=== PATIENT | male | born 1990 | race American Indian/Alaskan Native ===

== ENCOUNTER 2018-08-08 16:25 | Emergency (ER) | payer OTHER, MEDICAID ==
[2018-08-08] MEDS ORDERED: Sodium Chloride 0.9% 10 ML Syringe FLUSH PRN (16:38)
[2018-08-08] MEDS ORDERED: Iopamidol 612 MG/ML 100 ML Bottle IVPUSH ONE (16:39)
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
[2018-08-08 17:08] LABS: ANION GAP 12.7; CHLORIDE,CL 97 mmol/L (101-111); SODIUM,NA 136 mmol/L (135-145)
[2018-08-08] MEDS ORDERED: LORazepam 2 MG/ML Syringe IVPUSH ONE (17:09)
[2018-08-08] MEDS ORDERED: LORazepam 1 MG Tab PO ONE (17:49)
--- NOTE | 2018-08-11 14:19 | EKG ---
08/08/2018 - LAW SETHI - TIME: 1455 hours. FINDINGS: Sinus tachycardia at 120. [facility] /[id number]
--- NOTE | 2018-08-11 14:28 | EKG ---
08/08/2018 - LAW SETHI - TIME: 4:55 p.m. FINDINGS: Sinus tachycardia at 120. [facility] /[id number]
--- NOTE | 2018-08-11 23:18 | EKG ---
08/08/2018 - LAW SETHI - TIME: 4:55 p.m. As per my reading, sinus tachycardia at 120. MOD /[id number]
--- NOTE | 2018-08-12 00:03 | EKG ---
08/08/2018 - LAW SETHI - TIME: 4:55 p.m. As per my reading, sinus tachycardia at 120. MOD /[id number]
== END 2018-08-08 18:20 ==
LOC: DL.ED 16:25
DX: S02.2XXA Fracture of nasal bones, initial encounter for closed fracture (principal); S40.212A Abrasion of left shoulder, initial encounter; V43.53XA Car driver injured in collision with pick-up truck in traffic accident, initial encounter
CPT/HCPCS: 36415; 70450; 71260; 72125; 72128; 72131; 73610; 74177; 80053; 80305; 81001; 85025; 85610; 93005; 99285; A9270; G0480; Q9967

== ENCOUNTER 2021-02-21 17:07 | Observation (INO) | payer MEDICAID ==
[2021-02-21 17:45] LABS: CHLORIDE,CL 105 mmol/L (98-107); SODIUM,NA 147 mmol/L (136-145)
[2021-02-21] MEDS ORDERED: LORazepam 2 MG/ML SDV IVPUSH ONE (17:49)
[2021-02-21] MEDS ORDERED: Lactated Ringers 1,000 ML IV ONE (17:51)
--- NOTE | 2021-02-21 18:25 | CT ---
PROCEDURE INFORMATION: Exam: CT Head Without Contrast Exam date and time: 02/21/2021 6:10 PM Age: 30 years old Clinical indication: Condition or disease; Convulsions or seizures; Additional info: Seizure TECHNIQUE: Imaging protocol: Computed tomography of the head without contrast. Radiation optimization: All CT scans at this facility use at least one of these dose optimization techniques: automated exposure control; mA and/or kV adjustment per patient size (includes targeted exams where dose is matched to clinical indication); or iterative reconstruction. COMPARISON: CT Head wo Cont 08/08/2018 4:44 PM FINDINGS: Brain: Normal. No hemorrhage. Unremarkable white matter. No mass effect. Cerebral ventricles: No ventriculomegaly. Bones/joints: Unremarkable. No acute fracture. Paranasal sinuses: Visualized sinuses are unremarkable. No fluid levels. Mastoid air cells: Visualized mastoid air cells are well aerated. Soft tissues: Unremarkable. IMPRESSION: No acute intracranial abnormality.
--- NOTE | 2021-02-21 18:39 | EDM.PDOC ---
ED HPI GENERAL MEDICAL PROBLEM - General Chief Complaint: Neurological Problem Time Seen by Provider: 02/21/21 17:32 Source of Information: Reports: Patient, EMS, EMS Notes Reviewed, RN, RN Notes Reviewed History Limitations: Reports: No Limitations - History of Present Illness INITIAL COMMENTS - FREE TEXT/NARRATIVE: Patient is a 30-year-old male who presents to ER per [place] with complaint of seizure. Patient states he had a seizure approximately 1 hour ago. States he has had seizures in the past. States he has not been taking meds for seizures, but has taken gabapentin in the past for seizure activity. States he is not taking these meds for quite some time. Patient admits to alcohol use, last used last evening. Patient states he has tried meth once last week. Patient complains of a twitch today after the seizures. Onset: Today, Sudden - Related Data Allergies Allergy/AdvReac Type Severity Reaction Status Date / Time No Known Allergies Allergy Verified 02/21/21 17:44 Home Meds: Home Meds Gabapentin [Neurontin] 300 mg PO TID 10 Days #30 cap 02/22/21 [Rx] Past Medical History Neurological History: Reports: Seizure Social & Family History - Tobacco Use Tobacco Use Status *Q: Never Tobacco User - Recreational Drug Use Recreational Drug Use: No ED ROS GENERAL - Review of Systems Review Of Systems: Comprehensive ROS is negative, except as noted in HPI. - Physical Exam Exam: See Below Exam Limited By: No Limitations General Appearance: Alert, WD/WN, Anxious, Other (Patient has facial twitching/tach that he states is abnormal, patient is anxious) Eye Exam: Bilateral Eye: EOMI, Normal Inspection, PERRL (3 brisk) Ears: Normal External Exam, Hearing Grossly Normal Nose: Normal Inspection Throat/Mouth: Normal Inspection, Normal Voice, No Airway Compromise Head Exam: Atraumatic, Normocephalic Neck: Normal Inspection, Supple, Non-Tender, Full Range of Motion Respiratory/Chest: No Respiratory Distress, Lungs Clear, Normal Breath Sounds, No Accessory Muscle Use, Chest Non-Tender Cardiovascular: Normal Peripheral Pulses, Regular Rate, Rhythm, No Edema, No Gallop, No JVD, No Murmur, No Rub GI/Abdominal: Normal Bowel Sounds, Soft, Non-Tender, No Organomegaly, No Distention, No Abnormal Bruit, No Mass (Male) Exam: Deferred Rectal (Males) Exam: Deferred Neuro Exam (Abbreviated): Alert, Oriented, CN II-XII Intact, Normal Cognition, Normal Gait, Normal Reflexes, No Motor/Sensory Deficits Back Exam: Normal Inspection, Full Range of Motion Extremities: Normal Inspection, Normal Range of Motion, Non-Tender, No Pedal Edema, Normal Capillary Refill Psychiatric: Normal Affect, Normal Mood, Anxious Skin Exam: Warm, Dry, Intact, Normal Color, No Rash Course - Vital Signs Last Recorded V/S: Last Vital Signs Temp 98.6 F 02/22/21 08:06 Pulse 87 02/22/21 08:06 Resp 20 02/22/21 08:06 BP 111/70 02/22/21 08:06 Pulse Ox 97 02/22/21 08:06 - Orders/Labs/Meds Orders: Medication Orders Acetaminophen (Acetaminophen 325 Mg Tab) 650 mg PO Q4H PRN PRN Reason: Pain (Mild 1-3)/fever Last Admin: 02/21/21 22:37 Dose: 650 mg Documented by: WILBER Docusate Sodium (Docusate Sodium 100 Mg Cap) 100 mg PO BID PRN PRN Reason: Constipation Enoxaparin Sodium (Enoxaparin 40 Mg/0.4 Ml Syringe) 40 mg SUBCUT DAILY JENNY Last Admin: 02/22/21 10:28 Dose: 40 mg Documented by: RICHY Lorazepam (Lorazepam 2 Mg/Ml Sdv) 1 mg IVPUSH Q6H PRN PRN Reason: Seizures Sodium Chloride (Sodium Chloride 0.9% 10 Ml Syringe) 10 ml FLUSH ASDIRECTED PRN PRN Reason: Keep Vein Open Labs: Laboratory Tests 02/21/21 02/21/21 Range/Units 17:21 17:21 WBC 5.2 (5.0-10.0) 10^3/uL RBC 4.60 (4.6-6.2) 10^6/uL Hgb 14.1 (14.0-18.0) g/dL Hct 42.1 (40.0-54.0) % MCV 91.5 (80-100) fL MCH 30.7 (27.0-34.0) pg MCHC 33.5 (33.0-35.0) g/dL Plt Count 192 (150-450) 10^3/uL Neut % (Auto) 54.2 (42.2-75.2) % Lymph % (Auto) 36.3 (20.5-50.1) % [place] % (Auto) 8.9 H (2-8) % Eos % (Auto) 0.4 L (1.0-3.0) % Baso % (Auto) 0.2 (0.0-1.0) % Sodium 147 H (136-145) mmol/L Potassium 4.0 (3.5-5.1) mmol/L Chloride 105 (98-107) mmol/L Carbon Dioxide 30 (21-32) mmol/L Anion Gap 16.0 H (7-13) mEq/L BUN 19 H (7-18) mg/dL Creatinine 1.05 (0.70-1.30) mg/dL Est Cr Clr Drug Dosing 101.00 mL/min Estimated GFR (MDRD) > 60 BUN/Creatinine Ratio 18.1 (No establ ref range) Glucose 99 (74-99) mg/dL Calcium 8.6 (8.5-10.1) mg/dL Magnesium 1.8 (1.8-2.4) mg/dL Total Bilirubin 0.3 (0.2-1.0) mg/dL AST 53 H (15-37) U/L ALT 41 (16-63) U/L Alkaline Phosphatase 102 (46-116) U/L Total Protein 7.2 (6.4-8.2) g/dL Albumin 3.7 (3.4-5.0) g/dL Globulin 3.5 Albumin/Globulin Ratio 1.1 Ethyl Alcohol 46 (0) mg/dL Meds: Medications Generic Name Dose Route Start Last Admin Trade Name Freq PRN Reason Stop Dose Admin Acetaminophen 650 mg 02/21/21 20:56 02/21/21 22:37 Acetaminophen 325 Mg Tab PO 650 mg Q4H PRN Administration Pain (Mild 1-3)/fever Docusate Sodium 100 mg 02/21/21 20:56 Docusate Sodium 100 Mg Cap PO BID PRN Constipation Enoxaparin Sodium 40 mg 02/22/21 09:00 02/22/21 10:28 Enoxaparin 40 Mg/0.4 Ml Syringe SUBCUT 40 mg DAILY JENNY Administration Lorazepam 1 mg 02/21/21 20:56 Lorazepam 2 Mg/Ml Sdv IVPUSH Q6H PRN Seizures Sodium Chloride 10 ml 02/21/21 20:56 Sodium Chloride 0.9% 10 Ml Syringe FLUSH ASDIRECTED PRN Keep Vein Open Discontinued Medications Generic Name Dose Route Start Last Admin Trade Name Abdon PRN Reason Stop Dose Admin Gabapentin 800 mg 02/21/21 19:08 02/21/21 20:57 Gabapentin 400 Mg Cap PO 02/21/21 19:09 Not Given ONETIME ONE Gabapentin 800 mg 02/21/21 21:00 02/21/21 21:00 Gabapentin 400 Mg Cap PO 02/21/21 21:01 800 mg ONETIME ONE Administration Gabapentin 800 mg 02/21/21 21:00 02/21/21 21:07 Gabapentin 400 Mg Cap PO 02/21/21 21:01 Not Given TID ONE Lactated Ringer's 1,000 mls @ 999 mls/hr 02/21/21 17:51 02/21/21 20:24 Ringers, Lactated IV 02/21/21 18:51 Infused .BOLUS ONE Infusion Lorazepam 0.5 mg 02/21/21 17:49 02/21/21 19:01 Lorazepam 2 Mg/Ml Sdv IVPUSH 02/21/21 17:50 0.5 mg ONETIME ONE Administration - Radiology Interpretation Free Text/Narrative:: Head CT wo contrast: PROCEDURE INFORMATION: Exam: CT Head Without Contrast Exam date and time: 02/21/2021 6:10 PM Age: 30 years old Clinical indication: Condition or disease; Convulsions or seizures; Additional info: Seizure TECHNIQUE: Imaging protocol: Computed tomography of the head without contrast. Radiation optimization: All CT scans at this facility use at least one of these dose optimization techniques: automated exposure control; mA and/or kV adjustment per patient size (includes targeted exams where dose is matched to clinical indication); or iterative reconstruction. COMPARISON: CT Head wo Cont 08/08/2018 4:44 PM FINDINGS: Brain: Normal. No hemorrhage. Unremarkable white matter. No mass effect. Cerebral ventricles: No ventriculomegaly. Bones/joints: Unremarkable. No acute fracture. Paranasal sinuses: Visualized sinuses are unremarkable. No fluid levels. Mastoid air cells: Visualized mastoid air cells are well aerated. Soft tissues: Unremarkable. IMPRESSION: No acute intracranial abnormality. Thank you for allowing us to participate in the care of your patient. Dictated and Authenticated by: Aracely Alfredo MD 02/21/2021 6:25 PM Central Time ([place] & [place]) See rad report - Re-Assessments/Exams Free Text/Narrative Re-Assessment/Exam: 02/22/21 12:08 Discussed patient case with Dr. Taylor who agreed to admit the patient for acute inpatient. He requested gabapentin 800 mg be given to the patient. Departure - Departure Time of Disposition: 19:32 Disposition: Refer to Observation Condition: Good Clinical Impression: Seizure, Substance abuse - Discharge Information *PRESCRIPTION DRUG MONITORING PROGRAM REVIEWED*: No *COPY OF PRESCRIPTION DRUG MONITORING REPORT IN PATIENT JENIFER: No Sepsis Event Note (ED) - Evaluation Sepsis Screening Result: No Definite Risk
[2021-02-21] MEDS ORDERED: Gabapentin 400 MG Cap PO ONE ×3 (19:08→21:00)
[2021-02-21] MEDS ORDERED: Docusate Sodium 100 MG Cap PO PRN (20:56)
[2021-02-21] MEDS ORDERED: LORazepam 2 MG/ML SDV IVPUSH PRN (20:56)
[2021-02-21] MEDS ORDERED: Acetaminophen 325 MG Tab PO PRN (20:56)
[2021-02-21] MEDS ORDERED: Sodium Chloride 0.9% 10 ML Syringe FLUSH PRN (20:56)
--- NOTE | 2021-02-21 21:13 | PCM.HP ---
H&P History of Present Illness - General Date of Service: 02/21/21 Admit Problem/Dx: Admission Diagnosis/Problem Admission Diagnosis/Problem Seizure Source of Information: Patient, Other (ER provider) - History of Present Illness Onset of Symptoms: Reports: Sudden Duration of Symptoms: Reports: Day(s): (yest) Location: Reports: Generalized Associated Symptoms: Denies: No Other Symptoms Other HPI/Comments: pt is 30 y/o man presented to ER because of seizure. Pt reported that he has h/o seizures for long time and his seizures are sporadic. Last episode was long time. Pt reports that he is supposed to be on Gabapentin 800 mg TID but has not been taking in ER. pt was found with repeated twitching movement while in ER. CT brain was neg. Pt was felt to be post ictal but he kept to have twitchimg movemet all over, Pt reported that he had alcohol las week but his alcohol level was 46 in ER. Pt repeatedly denies taking any drugs. - Related Data Allergies/Adverse Reactions: Allergies Allergy/AdvReac Type Severity Reaction Status Date / Time No Known Allergies Allergy Verified 02/21/21 17:44 Home Medications: Home Meds . [No Known Home Meds] 02/21/21 [History] Past Medical History Neurological History: Reports: Seizure Hematologic History: Reports: None - History Comment History Comment: as per H/P Social & Family History - Family History Family Medical History: Unobtainable - Tobacco Use Tobacco Use Status *Q: Never Tobacco User - Alcohol Use Alcohol Use History: Yes - Recreational Drug Use Recreational Drug Use: No H&P Review of Systems - Review of Systems: Review Of Systems: See Below General: Denies: Fever, Chills HEENT: Denies: Headaches Pulmonary: Denies: Shortness of Breath Cardiovascular: Denies: Chest Pain Gastrointestinal: Denies: Abdominal Pain Genitourinary: Denies: Dysuria Musculoskeletal: Denies: Neck Pain Skin: Denies: Jaundice Psychiatric: Reports: Anxiety Neurological: Reports: Change in Speech. Denies: Headache, Other Hematologic/Lymphatic: Denies: Anemia Exam - Exam Exam: See Below - Vital Signs Vital Signs: Last Vital Signs Temp 97.8 F 02/21/21 20:13 Pulse 116 H 02/21/21 20:13 Resp 22 H 02/21/21 20:13 BP 146/79 H 02/21/21 20:13 Pulse Ox 90 L 02/21/21 20:13 Weight: 181 lb 6.4 oz - Exam Quality Assessment: No: Supplemental Oxygen General: Alert, Oriented HEENT: EOMI Lungs: Clear to Auscultation Cardiovascular: Regular Rate, Regular Rhythm GI/Abdominal Exam: Soft, Non-Tender Rectal (Males) Exam: Deferred Extremities: Normal Inspection Skin: Intact Neurological: Cranial Nerves Intact, Clonus. No: Normal Speech Neuro Extensive - Mental Status: Alert, Oriented x3, Other (movment all over in cluding face and mount. pt is pleaseat and answeing question. Pt could not specify if these movoments are chronic or new) Neuro Extensive - Motor, Sensory, Reflexes: Tremor, Other (gait not tested) Psychiatric: Alert, Anxious - Patient Data Lab Results Last 24 hrs: Laboratory Results - last 24 hr 02/21/21 02/21/21 02/21/21 Range/Units 17:21 17:21 19:14 WBC 5.2 (5.0-10.0) 10^3/uL RBC 4.60 (4.6-6.2) 10^6/uL Hgb 14.1 (14.0-18.0) g/dL Hct 42.1 (40.0-54.0) % MCV 91.5 (80-100) fL MCH 30.7 (27.0-34.0) pg MCHC 33.5 (33.0-35.0) g/dL Plt Count 192 (150-450) 10^3/uL Neut % (Auto) 54.2 (42.2-75.2) % Lymph % (Auto) 36.3 (20.5-50.1) % [place] % (Auto) 8.9 H (2-8) % Eos % (Auto) 0.4 L (1.0-3.0) % Baso % (Auto) 0.2 (0.0-1.0) % Sodium 147 H (136-145) mmol/L Potassium 4.0 (3.5-5.1) mmol/L Chloride 105 (98-107) mmol/L Carbon Dioxide 30 (21-32) mmol/L Anion Gap 16.0 H (7-13) mEq/L BUN 19 H (7-18) mg/dL Creatinine 1.05 (0.70-1.30) mg/dL Est Cr Clr Drug Dosing 101.00 mL/min Estimated GFR (MDRD) > 60 BUN/Creatinine Ratio 18.1 (No establ ref range) Glucose 99 (74-99) mg/dL Calcium 8.6 (8.5-10.1) mg/dL Magnesium 1.8 (1.8-2.4) mg/dL Total Bilirubin 0.3 (0.2-1.0) mg/dL AST 53 H (15-37) U/L ALT 41 (16-63) U/L Alkaline Phosphatase 102 (46-116) U/L Total Protein 7.2 (6.4-8.2) g/dL Albumin 3.7 (3.4-5.0) g/dL Globulin 3.5 Albumin/Globulin Ratio 1.1 Urine Color (YELLOW) Urine Appearance (CLEAR) Urine pH (5.0-9.0) Ur Specific [place] (1.005-1.030) Urine Protein (NEGATIVE) Urine Glucose (UA) (NEGATIVE) Urine Ketones (NEGATIVE) Urine Occult Blood (NEGATIVE) Urine Nitrite (NEGATIVE) Urine Bilirubin (NEGATIVE) Urine Urobilinogen (0.2-1.0) mg/dL Ur Leukocyte Esterase (NEGATIVE) Urine RBC /HPF Urine WBC (0-5/HPF) /HPF Ur Epithelial Cells (NOT SEEN) /HPF Amorphous Sediment (NOT SEEN) /HPF Urine Bacteria (0-FEW/HPF) /HPF Urine Mucus (NOT SEEN) /LPF Urine Opiates Screen (NEGATIVE) Ur Oxycodone Screen (NEGATIVE) Urine Methadone Screen (NEGATIVE) Ur Barbiturates Screen (NEGATIVE) U Tricyclic Antidepress (NEGATIVE) Ur Phencyclidine Scrn (NEGATIVE) Ur Amphetamine Screen (NEGATIVE) U Methamphetamines Scrn (NEGATIVE) Urine MDMA Screen (NEGATIVE) U Benzodiazepines Scrn (NEGATIVE) Urine Cocaine Screen (NEGATIVE) U Marijuana (THC) Screen (NEGATIVE) Ethyl Alcohol 46 (0) mg/dL SARS-CoV-2 RNA (VANDANA) Negative (NEGATIVE) 02/21/21 02/21/21 Range/Units 20:33 20:33 WBC (5.0-10.0) 10^3/uL RBC (4.6-6.2) 10^6/uL Hgb (14.0-18.0) g/dL Hct (40.0-54.0) % MCV (80-100) fL MCH (27.0-34.0) pg MCHC (33.0-35.0) g/dL Plt Count (150-450) 10^3/uL Neut % (Auto) (42.2-75.2) % Lymph % (Auto) (20.5-50.1) % [place] % (Auto) (2-8) % Eos % (Auto) (1.0-3.0) % Baso % (Auto) (0.0-1.0) % Sodium (136-145) mmol/L Potassium (3.5-5.1) mmol/L Chloride (98-107) mmol/L Carbon Dioxide (21-32) mmol/L Anion Gap (7-13) mEq/L BUN (7-18) mg/dL Creatinine (0.70-1.30) mg/dL Est Cr Clr Drug Dosing mL/min Estimated GFR (MDRD) BUN/Creatinine Ratio (No establ ref range) Glucose (74-99) mg/dL Calcium (8.5-10.1) mg/dL Magnesium (1.8-2.4) mg/dL Total Bilirubin (0.2-1.0) mg/dL AST (15-37) U/L ALT (16-63) U/L Alkaline Phosphatase (46-116) U/L Total Protein (6.4-8.2) g/dL Albumin (3.4-5.0) g/dL Globulin Albumin/Globulin Ratio Urine Color Yellow (YELLOW) Urine Appearance Slightly cloudy (CLEAR) Urine pH 7.0 (5.0-9.0) Ur Specific [place] 1.025 (1.005-1.030) Urine Protein 30 H (NEGATIVE) Urine Glucose (UA) Negative (NEGATIVE) Urine Ketones Negative (NEGATIVE) Urine Occult Blood Trace-intact H (NEGATIVE) Urine Nitrite Negative (NEGATIVE) Urine Bilirubin Negative (NEGATIVE) Urine Urobilinogen 0.2 (0.2-1.0) mg/dL Ur Leukocyte Esterase Negative (NEGATIVE) Urine RBC 0-5 /HPF Urine WBC 0-5 (0-5/HPF) /HPF Ur Epithelial Cells Rare (NOT SEEN) /HPF Amorphous Sediment Few (NOT SEEN) /HPF Urine Bacteria Rare (0-FEW/HPF) /HPF Urine Mucus Few H (NOT SEEN) /LPF Urine Opiates Screen Negative (NEGATIVE) Ur Oxycodone Screen Negative (NEGATIVE) Urine Methadone Screen Negative (NEGATIVE) Ur Barbiturates Screen Negative (NEGATIVE) U Tricyclic Antidepress Negative (NEGATIVE) Ur Phencyclidine Scrn Negative (NEGATIVE) Ur Amphetamine Screen Negative (NEGATIVE) U Methamphetamines Scrn Positive H (NEGATIVE) Urine MDMA Screen Negative (NEGATIVE) U Benzodiazepines Scrn Negative (NEGATIVE) Urine Cocaine Screen Negative (NEGATIVE) U Marijuana (THC) Screen Negative (NEGATIVE) Ethyl Alcohol (0) mg/dL SARS-CoV-2 RNA (VANDANA) (NEGATIVE) Result Diagrams: 02/21/21 17:21 02/21/21 17:21 Dylan Results Last 24 hrs: UDS : positive for Amph COVID is neg Imaging Impressions Last 24 hrs: CT brain no actue - Problem List (1) Seizure SNOMED Code(s): 98090102 ICD Code: R56.9 - UNSPECIFIED CONVULSIONS Status: Acute Current Visit: Yes Problem List Initiated/Reviewed/Updated: Yes Orders Last 24hrs: Active Orders 24 hr Category Date Time Status Admission Diagnosis [ADT] Stat ADT 02/21/21 19:10 Ordered Patient Status [ADT] Routine ADT 02/21/21 19:10 Active Communication Order [RC] PER UNIT ROUTINE Care 02/21/21 21:02 Ordered Oxygen Therapy [RC] PRN Care 02/21/21 20:56 Ordered Up With Assistance [RC] ASDIRECTED Care 02/21/21 20:56 Ordered VTE/DVT Education [RC] PER UNIT ROUTINE Care 02/21/21 20:56 Ordered Vital Signs [RC] Q4H Care 02/21/21 20:56 Ordered Regular Diet [DIET] Diet 02/22/21 Breakfast Ordered BASIC METABOLIC PANEL,BMP [CHEM] AM Lab 02/22/21 05:11 Ordered CBC WITH AUTO DIFF [HEME] Routine Lab 02/21/21 20:56 Ordered Acetaminophen [TylenoL] Med 02/21/21 20:56 Ordered 650 mg PO Q4H PRN Docusate Sodium [Colace] Med 02/21/21 20:56 Ordered 100 mg PO BID PRN Enoxaparin [Lovenox] Med 02/22/21 09:00 Ordered 30 mg SUBCUT DAILY Gabapentin [Neurontin] Med 02/21/21 21:00 Stop Req 800 mg PO ONETIME ONE LORazepam [Ativan] Med 02/21/21 20:56 Ordered 1 mg IVPUSH Q6H PRN Sodium Chloride 0.9% [Saline Flush] Med 02/21/21 20:56 Ordered 10 ml FLUSH ASDIRECTED PRN Saline Lock Insert [OM.PC] Routine Oth 02/21/21 20:56 Ordered Resuscitation Status Routine Resus Stat 02/21/21 20:56 Ordered Medication Orders Acetaminophen (Acetaminophen 325 Mg Tab) 650 mg PO Q4H PRN PRN Reason: Pain (Mild 1-3)/fever Docusate Sodium (Docusate Sodium 100 Mg Cap) 100 mg PO BID PRN PRN Reason: Constipation Enoxaparin Sodium (Enoxaparin 40 Mg/0.4 Ml Syringe) 40 mg SUBCUT DAILY JENNY Lorazepam (Lorazepam 2 Mg/Ml Sdv) 1 mg IVPUSH Q6H PRN PRN Reason: Seizures Sodium Chloride (Sodium Chloride 0.9% 10 Ml Syringe) 10 ml FLUSH ASDIRECTED PRN PRN Reason: Keep Vein Open Assessment/Plan Comment:: Seizure/ twitching mvoemtns : h/o of seizures triggered by not taking his medications in addition to alcohol and Amphetamine. Pt had another episode which was witnessed by RN as a brief tonic clonic seizure followed by urine incontinence and altered mentation. Continue with Ativan IV PRN. Resume at Gabapentin . Family were contacted to verify baseline mental status but no answer.
[2021-02-22 06:59] LABS: ANION GAP 10.6 mEq/L (7-13); CHLORIDE,CL 107 mmol/L (98-107); SODIUM,NA 145 mmol/L (136-145)
[2021-02-22] MEDS ORDERED: Enoxaparin 40 MG/0.4 ML Syringe SUBCUT SCH (09:00)
--- NOTE | 2021-02-22 10:39 | PCM.DCSUM1 ---
Discharge Summary - Hospital Course Free Text/Narrative:: Pt is 30 y/o man presented to ER because of a seizure. Pt reported that he has h/o seizures for long time and his seizures were sporadic. Last episode was long time. Pt reports that he is supposed to be on Gabapentin 800 mg TID but has not been taking in ER. pt was found with repeated twitching movement while in ER. CT brain was neg. Pt was felt to be post ictal but he kept to have twitching movement all over, Pt reported that he had alcohol las week but his alcohol level was 46 in ER. Pt repeatedly denies taking any drugs. Pt received Ativan X 1 in ER. Pt had another episode which was witnessed by RN as a brief tonic clonic seizure followed by urine incontinence and altered mentation. Pt was given Gabapentin 800 mg Po X1 Seizure/ twitching movements : h/o of seizures triggered by not taking his medications in addition to alcohol and Amphetamine. His symptoms are much better this morning . Pt was counselled about taking his medications regularly, following up with his PCP and neurologist. Pt was advised to avoid drinking and drugs. He was advised no driving till cleared by his doctor. Dr. Parker, Neurologist from [facility] was consulted oer the phone and he was advised to resume Neurontin but at lower dose ( 300 mg TID) till seen by his team. - Discharge Data Discharge Date: 02/22/21 Discharge Disposition: Home, Self-Care 01 Condition: Good - Referral to Home Health Date of Face to Face Encounter: 02/22/21 Primary Care Physician: PCP None - Discharge Diagnosis/Problem(s) (1) Seizure SNOMED Code(s): 91967138 ICD Code: R56.9 - UNSPECIFIED CONVULSIONS Status: Acute Current Visit: Yes - Patient Instructions Diet: Regular Diet as Tolerated Driving: Do Not Drive (till cleared by your doctor) Other/Special Instructions: no Ethoh or drugs - Discharge Plan Prescriptions/Med Rec: Gabapentin [Neurontin] 300 mg PO TID 10 Days #30 cap Tobacco Cessation Medication: Prescription Given Home Medications: Home Meds Gabapentin [Neurontin] 300 mg PO TID 10 Days #30 cap 02/22/21 [Rx] Oxygen Therapy Mode: Room Air Forms: ED Department Discharge Referrals: PCP,None [Primary Care Provider] - - Discharge Summary/Plan Comment DC Time >30 min.: Yes (exam , counselling and discharge process ) - Patient Data Vitals - Most Recent: Last Vital Signs Temp 98.6 F 02/22/21 08:06 Pulse 87 02/22/21 08:06 Resp 20 02/22/21 08:06 BP 111/70 02/22/21 08:06 Pulse Ox 97 02/22/21 08:06 Weight - Most Recent: 181 lb 6.4 oz I&O - Last 24 hours: Intake & Output 02/21/21 02/22/21 02/22/21 22:59 06:59 14:59 Intake Total 400 Output Total 450 Balance -50 Lab Results - Last 24 hrs: Laboratory Results - last 24 hr 02/21/21 02/21/21 02/21/21 Range/Units 17:21 17:21 19:14 WBC 5.2 (5.0-10.0) 10^3/uL RBC 4.60 (4.6-6.2) 10^6/uL Hgb 14.1 (14.0-18.0) g/dL Hct 42.1 (40.0-54.0) % MCV 91.5 (80-100) fL MCH 30.7 (27.0-34.0) pg MCHC 33.5 (33.0-35.0) g/dL Plt Count 192 (150-450) 10^3/uL Neut % (Auto) 54.2 (42.2-75.2) % Lymph % (Auto) 36.3 (20.5-50.1) % [facility] % (Auto) 8.9 H (2-8) % Eos % (Auto) 0.4 L (1.0-3.0) % Baso % (Auto) 0.2 (0.0-1.0) % Sodium 147 H (136-145) mmol/L Potassium 4.0 (3.5-5.1) mmol/L Chloride 105 (98-107) mmol/L Carbon Dioxide 30 (21-32) mmol/L Anion Gap 16.0 H (7-13) mEq/L BUN 19 H (7-18) mg/dL Creatinine 1.05 (0.70-1.30) mg/dL Est Cr Clr Drug Dosing 101.00 mL/min Estimated GFR (MDRD) > 60 BUN/Creatinine Ratio 18.1 (No establ ref range) Glucose 99 (74-99) mg/dL Calcium 8.6 (8.5-10.1) mg/dL Magnesium 1.8 (1.8-2.4) mg/dL Total Bilirubin 0.3 (0.2-1.0) mg/dL AST 53 H (15-37) U/L ALT 41 (16-63) U/L Alkaline Phosphatase 102 (46-116) U/L Total Protein 7.2 (6.4-8.2) g/dL Albumin 3.7 (3.4-5.0) g/dL Globulin 3.5 Albumin/Globulin Ratio 1.1 Urine Color (YELLOW) Urine Appearance (CLEAR) Urine pH (5.0-9.0) Ur Specific [place] (1.005-1.030) Urine Protein (NEGATIVE) Urine Glucose (UA) (NEGATIVE) Urine Ketones (NEGATIVE) Urine Occult Blood (NEGATIVE) Urine Nitrite (NEGATIVE) Urine Bilirubin (NEGATIVE) Urine Urobilinogen (0.2-1.0) mg/dL Ur Leukocyte Esterase (NEGATIVE) Urine RBC /HPF Urine WBC (0-5/HPF) /HPF Ur Epithelial Cells (NOT SEEN) /HPF Amorphous Sediment (NOT SEEN) /HPF Urine Bacteria (0-FEW/HPF) /HPF Urine Mucus (NOT SEEN) /LPF Urine Opiates Screen (NEGATIVE) Ur Oxycodone Screen (NEGATIVE) Urine Methadone Screen (NEGATIVE) Ur Barbiturates Screen (NEGATIVE) U Tricyclic Antidepress (NEGATIVE) Ur Phencyclidine Scrn (NEGATIVE) Ur Amphetamine Screen (NEGATIVE) U Methamphetamines Scrn (NEGATIVE) Urine MDMA Screen (NEGATIVE) U Benzodiazepines Scrn (NEGATIVE) Urine Cocaine Screen (NEGATIVE) U Marijuana (THC) Screen (NEGATIVE) Ethyl Alcohol 46 (0) mg/dL SARS-CoV-2 RNA (VANDANA) Negative (NEGATIVE) 02/21/21 02/21/21 02/22/21 Range/Units 20:33 20:33 05:54 WBC 5.3 (5.0-10.0) 10^3/uL RBC 4.25 L (4.6-6.2) 10^6/uL Hgb 13.0 L (14.0-18.0) g/dL Hct 39.2 L (40.0-54.0) % MCV 92.2 (80-100) fL MCH 30.6 (27.0-34.0) pg MCHC 33.2 (33.0-35.0) g/dL Plt Count 182 (150-450) 10^3/uL Neut % (Auto) 39.8 L (42.2-75.2) % Lymph % (Auto) 50.6 H (20.5-50.1) % [place] % (Auto) 7.9 (2-8) % Eos % (Auto) 1.3 (1.0-3.0) % Baso % (Auto) 0.4 (0.0-1.0) % Sodium (136-145) mmol/L Potassium (3.5-5.1) mmol/L Chloride (98-107) mmol/L Carbon Dioxide (21-32) mmol/L Anion Gap (7-13) mEq/L BUN (7-18) mg/dL Creatinine (0.70-1.30) mg/dL Est Cr Clr Drug Dosing mL/min Estimated GFR (MDRD) BUN/Creatinine Ratio (No establ ref range) Glucose (74-99) mg/dL Calcium (8.5-10.1) mg/dL Magnesium (1.8-2.4) mg/dL Total Bilirubin (0.2-1.0) mg/dL AST (15-37) U/L ALT (16-63) U/L Alkaline Phosphatase (46-116) U/L Total Protein (6.4-8.2) g/dL Albumin (3.4-5.0) g/dL Globulin Albumin/Globulin Ratio Urine Color Yellow (YELLOW) Urine Appearance Slightly cloudy (CLEAR) Urine pH 7.0 (5.0-9.0) Ur Specific [place] 1.025 (1.005-1.030) Urine Protein 30 H (NEGATIVE) Urine Glucose (UA) Negative (NEGATIVE) Urine Ketones Negative (NEGATIVE) Urine Occult Blood Trace-intact H (NEGATIVE) Urine Nitrite Negative (NEGATIVE) Urine Bilirubin Negative (NEGATIVE) Urine Urobilinogen 0.2 (0.2-1.0) mg/dL Ur Leukocyte Esterase Negative (NEGATIVE) Urine RBC 0-5 /HPF Urine WBC 0-5 (0-5/HPF) /HPF Ur Epithelial Cells Rare (NOT SEEN) /HPF Amorphous Sediment Few (NOT SEEN) /HPF Urine Bacteria Rare (0-FEW/HPF) /HPF Urine Mucus Few H (NOT SEEN) /LPF Urine Opiates Screen Negative (NEGATIVE) Ur Oxycodone Screen Negative (NEGATIVE) Urine Methadone Screen Negative (NEGATIVE) Ur Barbiturates Screen Negative (NEGATIVE) U Tricyclic Antidepress Negative (NEGATIVE) Ur Phencyclidine Scrn Negative (NEGATIVE) Ur Amphetamine Screen Negative (NEGATIVE) U Methamphetamines Scrn Positive H (NEGATIVE) Urine MDMA Screen Negative (NEGATIVE) U Benzodiazepines Scrn Negative (NEGATIVE) Urine Cocaine Screen Negative (NEGATIVE) U Marijuana (THC) Screen Negative (NEGATIVE) Ethyl Alcohol (0) mg/dL SARS-CoV-2 RNA (VANDANA) (NEGATIVE) 02/22/21 Range/Units 05:54 WBC (5.0-10.0) 10^3/uL RBC (4.6-6.2) 10^6/uL Hgb (14.0-18.0) g/dL Hct (40.0-54.0) % MCV (80-100) fL MCH (27.0-34.0) pg MCHC (33.0-35.0) g/dL Plt Count (150-450) 10^3/uL Neut % (Auto) (42.2-75.2) % Lymph % (Auto) (20.5-50.1) % [facility] % (Auto) (2-8) % Eos % (Auto) (1.0-3.0) % Baso % (Auto) (0.0-1.0) % Sodium 145 (136-145) mmol/L Potassium 3.6 (3.5-5.1) mmol/L Chloride 107 (98-107) mmol/L Carbon Dioxide 31 (21-32) mmol/L Anion Gap 10.6 (7-13) mEq/L BUN 18 (7-18) mg/dL Creatinine 1.01 (0.70-1.30) mg/dL Est Cr Clr Drug Dosing 105.00 mL/min Estimated GFR (MDRD) > 60 BUN/Creatinine Ratio (No establ ref range) Glucose 88 (74-99) mg/dL Calcium 8.2 L (8.5-10.1) mg/dL Magnesium (1.8-2.4) mg/dL Total Bilirubin (0.2-1.0) mg/dL AST (15-37) U/L ALT (16-63) U/L Alkaline Phosphatase (46-116) U/L Total Protein (6.4-8.2) g/dL Albumin (3.4-5.0) g/dL Globulin Albumin/Globulin Ratio Urine Color (YELLOW) Urine Appearance (CLEAR) Urine pH (5.0-9.0) Ur Specific [place] (1.005-1.030) Urine Protein (NEGATIVE) Urine Glucose (UA) (NEGATIVE) Urine Ketones (NEGATIVE) Urine Occult Blood (NEGATIVE) Urine Nitrite (NEGATIVE) Urine Bilirubin (NEGATIVE) Urine Urobilinogen (0.2-1.0) mg/dL Ur Leukocyte Esterase (NEGATIVE) Urine RBC /HPF Urine WBC (0-5/HPF) /HPF Ur Epithelial Cells (NOT SEEN) /HPF Amorphous Sediment (NOT SEEN) /HPF Urine Bacteria (0-FEW/HPF) /HPF Urine Mucus (NOT SEEN) /LPF Urine Opiates Screen (NEGATIVE) Ur Oxycodone Screen (NEGATIVE) Urine Methadone Screen (NEGATIVE) Ur Barbiturates Screen (NEGATIVE) U Tricyclic Antidepress (NEGATIVE) Ur Phencyclidine Scrn (NEGATIVE) Ur Amphetamine Screen (NEGATIVE) U Methamphetamines Scrn (NEGATIVE) Urine MDMA Screen (NEGATIVE) U Benzodiazepines Scrn (NEGATIVE) Urine Cocaine Screen (NEGATIVE) U Marijuana (THC) Screen (NEGATIVE) Ethyl Alcohol (0) mg/dL SARS-CoV-2 RNA (VANDANA) (NEGATIVE) Med Orders - Current: Current Medications Acetaminophen (Acetaminophen 325 Mg Tab) 650 mg PO Q4H PRN PRN Reason: Pain (Mild 1-3)/fever Last Admin: 02/21/21 22:37 Dose: 650 mg Documented by: Docusate Sodium (Docusate Sodium 100 Mg Cap) 100 mg PO BID PRN PRN Reason: Constipation Enoxaparin Sodium (Enoxaparin 40 Mg/0.4 Ml Syringe) 40 mg SUBCUT DAILY JENNY Last Admin: 02/22/21 10:28 Dose: 40 mg Documented by: Lorazepam (Lorazepam 2 Mg/Ml Sdv) 1 mg IVPUSH Q6H PRN PRN Reason: Seizures Sodium Chloride (Sodium Chloride 0.9% 10 Ml Syringe) 10 ml FLUSH ASDIRECTED PRN PRN Reason: Keep Vein Open Discontinued Medications Gabapentin (Gabapentin 400 Mg Cap) 800 mg PO ONETIME ONE Stop: 02/21/21 19:09 Last Admin: 02/21/21 20:57 Dose: Not Given Documented by: Gabapentin (Gabapentin 400 Mg Cap) 800 mg PO ONETIME ONE Stop: 02/21/21 21:01 Last Admin: 02/21/21 21:00 Dose: 800 mg Documented by: Gabapentin (Gabapentin 400 Mg Cap) 800 mg PO TID ONE Stop: 02/21/21 21:01 Last Admin: 02/21/21 21:07 Dose: Not Given Documented by: Lactated Ringer's (Ringers, Lactated) 1,000 mls @ 999 mls/hr IV .BOLUS ONE Stop: 02/21/21 18:51 Last Infusion: 02/21/21 20:24 Dose: Infused Documented by: Lorazepam (Lorazepam 2 Mg/Ml Sdv) 0.5 mg IVPUSH ONETIME ONE Stop: 02/21/21 17:50 Last Admin: 02/21/21 19:01 Dose: 0.5 mg Documented by:
== END 2021-02-22 14:15 | disposition home or self-care (01) ==
LOC: DL.ED 17:07 → DL.MS 19:10
PROVIDERS: ADMIT Internal Medicine; ATTEND Internal Medicine
DX: R56.9 Unspecified convulsions (principal); R32 Unspecified urinary incontinence; R41.82 Altered mental status, unspecified; F19.10 Other psychoactive substance abuse, uncomplicated; Z20.822 Contact with and (suspected) exposure to COVID-19
CPT/HCPCS: 36415; 70450; 80048; 80053; 80305; 80307; 81001; 83735; 85025; 87635; 96374; 99284; 99285; A9270; J1650; J2060; J7120; 96372; G0378; U0002

== ENCOUNTER 2021-09-21 13:40 | Emergency (ER) | payer MEDICAID ==
[2021-09-21] MEDS ORDERED: Sodium Chloride 0.9% 10 ML Syringe FLUSH PRN (13:45)
[2021-09-21] MEDS: Lidocaine 1% with EPINEPHrine 1:100,000 20 ML MDV INJECT ONE ×2 (13:50→14:03)
--- NOTE | 2021-09-21 13:55 | EDM.PDOC ---
ED HPI GENERAL MEDICAL PROBLEM - General Chief Complaint: Skin Complaint Time Seen by Provider: 09/21/21 13:47 Source of Information: Reports: Patient History Limitations: Reports: No Limitations - History of Present Illness INITIAL COMMENTS - FREE TEXT/NARRATIVE: 31 y/o M brought in by EMS for abscesses in his R and L ac joints as well as an infection of his 1st toe on R foot. Infection began 5-6 days ago after shooting meth or soap into his arms. Pt is unsure if he was given meth or soap to use for drugs. After injecting himself his arms became reddened and days later began draining fluid. Pt reports he beleives he cut his big toe on the R foot 2 weeks ago on a piece of glas and since then it has developed reddness swelling and puss draining from it. Does drinking alcohol daily. No daily meds. NKDA. Denies ayon, cp, db, fever, cough, chills, abd pn. - Related Data Allergies Allergy/AdvReac Type Severity Reaction Status Date / Time No Known Allergies Allergy Verified 02/21/21 17:44 Home Meds: Home Meds Gabapentin [Neurontin] 300 mg PO TID 10 Days #30 cap 02/22/21 [Rx] Past Medical History Hematologic History: Reports: None - History Comment History Comment: as per H/P Social & Family History - Family History Family Medical History: Unobtainable ED ROS GENERAL - Review of Systems Review Of Systems: Comprehensive ROS is negative, except as noted in HPI. ED EXAM, SKIN/RASH Exam: See Below General Appearance: Alert, Anxious Eye Exam: Bilateral Eye: PERRL Respiratory/Chest: No Respiratory Distress, Lungs Clear, Normal Breath Sounds, No Accessory Muscle Use, Chest Non-Tender Cardiovascular: Normal Peripheral Pulses, Regular Rate, Rhythm, No Edema, No Gallop, No JVD, No Murmur, No Rub GI/Abdominal: Soft, Non-Tender Extremities: Other (raised reddened fluctuant area to R ac fossa about 8cm in diameter with some purulent drainage. Raised fluctuant area to L AC fossa 3cm in diameter. Reddened purulent ulceration to ventral R 1str toe 2.5cm in diameter. ) Course - Vital Signs Last Recorded V/S: Last Vital Signs Temp 98.1 F 09/21/21 13:41 Pulse 95 09/21/21 13:41 Resp 16 09/21/21 13:41 BP 115/66 09/21/21 13:41 Pulse Ox 99 09/21/21 13:41 - Orders/Labs/Meds Orders: Active Orders 24 hr Category Date Time Status CULTURE BLOOD [BC] Stat Lab 09/21/21 13:57 Received CULTURE BLOOD [BC] Stat Lab 09/21/21 13:59 Received Sodium Chloride 0.9% [Saline Flush] Med 09/21/21 13:45 Active 10 ml FLUSH ASDIRECTED PRN Blood Culture x2 Reflex Set [OM.PC] Stat Oth 09/21/21 13:45 Ordered Peripheral IV Insertion Adult [OM.PC] Routine Oth 09/21/21 13:45 Ordered Medication Orders Sodium Chloride (Sodium Chloride 0.9% 10 Ml Syringe) 10 ml FLUSH ASDIRECTED PRN PRN Reason: Keep Vein Open Last Admin: 09/21/21 14:04 Dose: 10 ml Documented by: JUDIE Labs: Laboratory Tests 09/21/21 09/21/21 Range/Units 13:57 13:57 WBC 10.7 H (5.0-10.0) 10^3/uL RBC 4.77 (4.6-6.2) 10^6/uL Hgb 14.3 (14.0-18.0) g/dL Hct 42.1 (40.0-54.0) % MCV 88.3 D (80-100) fL MCH 30.0 (27.0-34.0) pg MCHC 34.0 (33.0-35.0) g/dL Plt Count 304 D (150-450) 10^3/uL Neut % (Auto) 82.4 H (42.2-75.2) % Lymph % (Auto) 11.6 L (20.5-50.1) % [place] % (Auto) 5.8 (2-8) % Eos % (Auto) 0.1 L (1.0-3.0) % Baso % (Auto) 0.1 (0.0-1.0) % Sodium 140 (136-145) mmol/L Potassium 3.9 (3.5-5.1) mmol/L Chloride 100 (98-107) mmol/L Carbon Dioxide 25 (21-32) mmol/L Anion Gap 18.9 H (7-13) mEq/L BUN 21 H (7-18) mg/dL Creatinine 1.18 (0.70-1.30) mg/dL Est Cr Clr Drug Dosing 91.94 mL/min Estimated GFR (MDRD) > 60 BUN/Creatinine Ratio 17.8 (No establ ref range) Glucose 110 H (70-99) mg/dL Calcium 9.5 (8.5-10.1) mg/dL Total Bilirubin 0.5 (0.2-1.0) mg/dL AST 12 L (15-37) U/L ALT 19 (16-63) U/L Alkaline Phosphatase 171 H (46-116) U/L Total Protein 8.9 H (6.4-8.2) g/dL Albumin 3.8 (3.4-5.0) g/dL Globulin 5.1 Albumin/Globulin Ratio 0.7 Meds: Medications Generic Name Dose Route Start Last Admin Trade Name Freq PRN Reason Stop Dose Admin Sodium Chloride 10 ml 09/21/21 13:45 09/21/21 14:04 Sodium Chloride 0.9% 10 Ml Syringe FLUSH 10 ml ASDIRECTED PRN Administration Keep Vein Open Discontinued Medications Generic Name Dose Route Start Last Admin Trade Name Freq PRN Reason Stop Dose Admin Iopamidol 100 ml 09/21/21 14:07 09/21/21 15:07 Iopamidol 612 Mg/Ml 100 Ml Bottle IVPUSH 09/21/21 14:08 100 ml ONETIME ONE Administration Lidocaine/Epinephrine 20 ml 09/21/21 13:46 09/21/21 14:03 Lidocaine 1% With Epinephrine 1:100,000 20 Ml Mdv INJECT 09/21/21 13:47 20 ml ONETIME ONE Administration - Re-Assessments/Exams Free Text/Narrative Re-Assessment/Exam: 09/21/21 16:11 The pt left ama . I attempted several times to convince the pt to stay but he refused and stated he had to make a police report and that he would come back later. Departure - Departure Time of Disposition: 16:13 Disposition: Against Medical Advice 07 Clinical Impression: Left against medical advice - Discharge Information Forms: ED Department Discharge Sepsis Event Note (ED) - Focused Exam Vital Signs: Vital Signs Temp Pulse Resp BP Pulse Ox 09/21/21 13:41 98.1 F 95 16 115/66 99 - My Orders Last 24 Hours: My Active Orders 09/21/21 13:45 Sodium Chloride 0.9% [Saline Flush] 10 ml FLUSH ASDIRECTED PRN Blood Culture x2 Reflex Set [OM.PC] Stat Peripheral IV Insertion Adult [OM.PC] Routine 09/21/21 13:57 CULTURE BLOOD [BC] Stat 09/21/21 13:59 CULTURE BLOOD [BC] Stat - Assessment/Plan Last 24 Hours: My Active Orders 09/21/21 13:45 Sodium Chloride 0.9% [Saline Flush] 10 ml FLUSH ASDIRECTED PRN Blood Culture x2 Reflex Set [OM.PC] Stat Peripheral IV Insertion Adult [OM.PC] Routine 09/21/21 13:57 CULTURE BLOOD [BC] Stat 09/21/21 13:59 CULTURE BLOOD [BC] Stat
[2021-09-21] MEDS ORDERED: Iopamidol 612 MG/ML 100 ML Bottle IVPUSH ONE (14:07)
[2021-09-21 14:25] LABS: ANION GAP 18.9 mEq/L (7-13); CHLORIDE,CL 100 mmol/L (98-107); SODIUM,NA 140 mmol/L (136-145)
--- NOTE | 2021-09-21 14:38 | CR ---
EXAMINATION: Great Toe Rt 3 views SEX: Male AGE: 31 years CLINICAL HISTORY: 31-year-old male draining toe abscess. Interpretation: No plain film abnormalities appreciated. No foreign body. No subcutaneous emphysema or air collections No inflammatory periostitis. No osteolytic/osteoblastic or erosive osteomyelitis. No forefoot fracture or dislocation.
--- NOTE | 2021-09-21 15:41 | CT ---
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 Scan technique: Volume acquisition of data both forearms above the wrists including both elbows obtained with patient hyperextended (arms overhead). Patient motion and suboptimal timing of contrast compromising the exam. All data archived in the PACS system [place], [place] for storage, reformatting and study. Interpretation: Abnormal. *Small round subcutaneous collections of fluid identified in the antecubital fossa both forearms (most clearly demonstrated on axial images numbers [id number]) with thin, enhancing "rind" (#56) suggesting abscesses. Clinical? No surrounding or adjacent "dirty" fat and fluid collections currently do not extend into the deep fascia or musculature. No foreign bodies. No abnormal collections of subcutaneous air (gas). No elbow joint involvement.
== END 2021-09-21 15:20 | disposition left against medical advice (07) ==
LOC: DL.ED 13:40
DX: L02.413 Cutaneous abscess of right upper limb (principal); L02.414 Cutaneous abscess of left upper limb; L97.519 Non-pressure chronic ulcer of other part of right foot with unspecified severity
CPT/HCPCS: 36415; 73201; 73660-T5; 80053; 85025; 87040; 99284-25; Q9967

== ENCOUNTER 2021-09-22 20:53 | Emergency (ER) | payer MEDICAID ==
--- NOTE | 2021-09-22 21:14 | EDM.PDOC ---
ED HPI GENERAL MEDICAL PROBLEM - General Chief Complaint: Wound Recheck Stated Complaint: AMBULANCE Time Seen by Provider: 09/22/21 08:50 Source of Information: Reports: Patient History Limitations: Reports: No Limitations - History of Present Illness INITIAL COMMENTS - FREE TEXT/NARRATIVE: This 31 yo male patient was brought to the ED by [facility] due to pain in his arms. This patient was seen in the ED yesterday for this issue. During that visit, the patient had lab work and a soft tissue CT of his arms demonstrating bilateral abscesses with no evidence of infection into the fascia. The patient left against medical advice yesterday before antibiotic treatment was begun. The patient reports he missed his veins while shooting up with meth. The patient admits to meth use since he left here yesterday (snorted it). Duration: Day(s):, Constant Location: Reports: Upper Extremity, Left, Upper Extremity, Right Quality: Reports: Ache, Throbbing Severity: Moderate Improves with: Reports: None Worsens with: Reports: None Context: Reports: Other Associated Symptoms: Reports: No Other Symptoms - Related Data Allergies Allergy/AdvReac Type Severity Reaction Status Date / Time No Known Allergies Allergy Verified 09/22/21 20:53 Home Meds: Home Meds Gabapentin [Neurontin] 300 mg PO TID 10 Days #30 cap 02/22/21 [Rx] Past Medical History - Past Health History Medical/Surgical History: Denies Medical/Surgical History Hematologic History: Reports: None - History Comment History Comment: as per H/P Social & Family History - Family History Family Medical History: Unobtainable - Tobacco Use Tobacco Use Status *Q: Current Every Day Tobacco User Years of Tobacco use: 10 Packs/Tins Daily: 1 - Alcohol Use Date of Last Drink: 09/21/21 - Recreational Drug Use Recreational Drug Use: Yes Recreational 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 ED EXAM, SKIN/RASH Exam: See Below Exam Limited By: No Limitations General Appearance: Alert, WD/WN, Mild Distress, Thin Eye Exam: Bilateral Eye: EOMI, Normal Inspection, PERRL Ears: Normal External Exam, Normal Canal, Hearing Grossly Normal, Normal TMs Nose: Normal Inspection, Normal Mucosa, No Blood Throat/Mouth: Normal Inspection, Normal Lips, Normal Teeth, Normal Gums, Normal Oropharynx, Normal Voice, No Airway Compromise Head: Atraumatic, Normocephalic Neck: Normal Inspection, Supple, Non-Tender, Full Range of Motion Respiratory/Chest: No Respiratory Distress, Lungs Clear, Normal Breath Sounds, No Accessory Muscle Use, Chest Non-Tender Cardiovascular: Normal Peripheral Pulses, Regular Rate, Rhythm, No Edema, No Gallop, No JVD, No Murmur, No Rub GI/Abdominal: Normal Bowel Sounds, Soft, Non-Tender, No Organomegaly, No Distention, No Abnormal Bruit, No Mass (Male) Exam: Deferred Rectal (Males) Exam: Deferred Back Exam: Normal Inspection, Full Range of Motion, NT Extremities: Arm Pain (bilateral ) Neurological: Alert, Oriented, CN II-XII Intact, Normal Cognition, Normal Gait, Normal Reflexes, No Motor/Sensory Deficits Psychiatric: Normal Affect, Normal Mood Skin: Warm, Dry, Intact, Normal Color, No Rash Location, Skin: Upper Extremity, Right, Upper Extremity, Left Characteristics: Erythematous Associated features: Warmth, Tenderness, Induration, Inflammation Lymphatic: No Adenopathy Course - Vital Signs Last Recorded V/S: Last Vital Signs Temp 98.3 F 09/22/21 20:54 Pulse 93 09/22/21 20:54 Resp 16 09/22/21 20:54 BP 111/78 09/22/21 20:54 Pulse Ox 98 09/22/21 20:54 - Orders/Labs/Meds Orders: Active Orders 24 hr Category Date Time Status CULTURE BLOOD [BC] Stat Lab 09/22/21 21:05 Received Vancomycin 1.25 gm Med 09/22/21 21:26 Active Sodium Chloride 0.9% [Normal Saline AdvBag] 250 ml IV ONETIME Medication Orders Vancomycin HCl 1.25 gm/ Sodium (Chloride) 250 mls @ 167 mls/hr IV ONETIME ONE Stop: 09/22/21 22:55 Last Admin: 09/22/21 21:33 Dose: 167 mls/hr Documented by: LILY Labs: Laboratory Tests 09/22/21 09/22/21 09/22/21 Range/Units 21:05 21:05 21:05 WBC 7.7 (5.0-10.0) 10^3/uL RBC 4.55 L (4.6-6.2) 10^6/uL Hgb 13.7 L (14.0-18.0) g/dL Hct 40.7 (40.0-54.0) % MCV 89.5 (80-100) fL MCH 30.1 (27.0-34.0) pg MCHC 33.7 (33.0-35.0) g/dL Plt Count 309 (150-450) 10^3/uL Neut % (Auto) 63.6 (42.2-75.2) % Lymph % (Auto) 25.5 (20.5-50.1) % [place] % (Auto) 8.6 H (2-8) % Eos % (Auto) 2.2 (1.0-3.0) % Baso % (Auto) 0.1 (0.0-1.0) % Sodium 142 (136-145) mmol/L Potassium 3.5 (3.5-5.1) mmol/L Chloride 102 (98-107) mmol/L Carbon Dioxide 26 (21-32) mmol/L Anion Gap 17.5 H (7-13) mEq/L BUN 14 (7-18) mg/dL Creatinine 1.04 (0.70-1.30) mg/dL Est Cr Clr Drug Dosing 101.03 mL/min Estimated GFR (MDRD) > 60 BUN/Creatinine Ratio 13.5 (No establ ref range) Glucose 120 H (70-99) mg/dL Lactic Acid 1.7 (0.4-2.0) mmol/L Calcium 8.7 (8.5-10.1) mg/dL Total Bilirubin 0.4 (0.2-1.0) mg/dL AST 11 L (15-37) U/L ALT 17 (16-63) U/L Alkaline Phosphatase 156 H (46-116) U/L Total Protein 7.9 (6.4-8.2) g/dL Albumin 3.3 L (3.4-5.0) g/dL Globulin 4.6 Albumin/Globulin Ratio 0.72 Meds: Medications Generic Name Dose Route Start Last Admin Trade Name Freq PRN Reason Stop Dose Admin Vancomycin HCl 1.25 gm/ Sodium 250 mls @ 167 mls/hr 09/22/21 21:26 09/22/21 21:33 Chloride IV 09/22/21 22:55 167 mls/hr ONETIME ONE Administration Departure - Departure Time of Disposition: 22:53 Disposition: Home, Self-Care 01 Condition: Fair Clinical Impression: Abscess of left elbow, Abscess of right elbow - Discharge Information *PRESCRIPTION DRUG MONITORING PROGRAM REVIEWED*: Not Applicable *COPY OF PRESCRIPTION DRUG MONITORING REPORT IN PATIENT JENIFER: Not Applicable Instructions: Skin Abscess, [id number] Forms: ED Department Discharge Care Plan Goals: The patient was advised of the examination and lab results during the visit. The patient was given IV Vancomycin while in the ED. the patient was discharged with scripts for Bactrim DS #20 to take 1 by mouth 2 times per day for 10 days and Keflex (500 mg) #30 to take 1 by mouth 3 times per day for 10 days. The patient was encouraged to follow-up with his primary care facility in 1 week for continued evaluation and further management. The patient was advised to avoid methamphetamine use. If the patient has any additional symptoms or concerns, the patient should either return to the emergency department or visit his primary care facility. Sepsis Event Note (ED) - Evaluation Sepsis Screening Result: No Definite Risk - Focused Exam Vital Signs: Vital Signs Temp Pulse Resp BP Pulse Ox 09/22/21 20:54 98.3 F 93 16 111/78 98 - My Orders Last 24 Hours: My Active Orders 09/22/21 21:05 CULTURE BLOOD [BC] Stat 09/22/21 21:26 Vancomycin 1.25 gm Sodium Chloride 0.9% [Normal Saline AdvBag] 250 ml IV ONETIME - Assessment/Plan Last 24 Hours: My Active Orders 09/22/21 21:05 CULTURE BLOOD [BC] Stat 09/22/21 21:26 Vancomycin 1.25 gm Sodium Chloride 0.9% [Normal Saline AdvBag] 250 ml IV ONETIME
[2021-09-22 21:30] LABS: ANION GAP 17.5 mEq/L (7-13); CHLORIDE,CL 102 mmol/L (98-107); SODIUM,NA 142 mmol/L (136-145)
== END 2021-09-22 23:10 | disposition home or self-care (01) ==
LOC: DL.ED 20:53
DX: L02.413 Cutaneous abscess of right upper limb (principal); L02.414 Cutaneous abscess of left upper limb; Z72.0 Tobacco use
CPT/HCPCS: 36415; 80053; 83605; 85025; 87040; 96365; 96366; 99283-25; J3370; J7050

== ENCOUNTER 2021-09-29 19:04 | Emergency (ER) | payer MEDICAID ==
--- NOTE | 2021-09-29 19:16 | EDM.PDOC ---
ED HPI GENERAL MEDICAL PROBLEM - General Chief Complaint: Neuro Symptoms/Deficits Stated Complaint: AMBULANCE Time Seen by Provider: 09/29/21 19:10 Source of Information: Reports: Patient History Limitations: Reports: No Limitations - History of Present Illness INITIAL COMMENTS - FREE TEXT/NARRATIVE: 31 y/o M reportedly had a seizure at home, unknown when the seizure occurred u nknown duration. EMS states they arrived at the scene and found pt awake and alert but refusing to answer questions. Recent hx of bilateral AC fossa bascesses from injecting meth. Pt is reportedly on Bactrim to treat the abscesses. EMS states pt asked for ativan for his seizures multiple times on the way in to the hosptial. Unknown hx of seizures. Pt denies ayon, vision prob, cp, db, abd pn, trauma, diff voiding, drugs. Admits to etoh tonight. - Related Data Allergies Allergy/AdvReac Type Severity Reaction Status Date / Time No Known Allergies Allergy Verified 09/29/21 19:11 Home Meds: Home Meds Gabapentin [Neurontin] 300 mg PO TID 10 Days #30 cap 02/22/21 [Rx] Sulfamethoxazole/Trimethoprim [Bactrim Ds Tablet] 09/29/21 [History] cephALEXin [Cephalexin] 09/29/21 [History] Past Medical History - Past Health History Medical/Surgical History: Denies Medical/Surgical History Hematologic History: Reports: None - History Comment History Comment: as per H/P Social & Family History - Family History Family Medical History: Unobtainable ED ROS GENERAL - Review of Systems Review Of Systems: Comprehensive ROS is negative, except as noted in HPI. - Physical Exam Exam: See Below Exam Limited By: Intoxication (pt uncooperative) General Appearance: Alert (but refusing to answer or participate in physical exam) Eye Exam: Bilateral Eye: PERRL Nose: Normal Inspection, Normal Mucosa, No Blood Throat/Mouth: Normal Inspection, Normal Lips, Normal Teeth, Normal Gums, Normal Oropharynx, Normal Voice, No Airway Compromise Head Exam: Atraumatic, Normocephalic Neck: Supple, Non-Tender Respiratory/Chest: No Respiratory Distress, Lungs Clear, Normal Breath Sounds Cardiovascular: Normal Peripheral Pulses, Regular Rate, Rhythm, No JVD GI/Abdominal: Soft, Non-Tender (Male) Exam: Deferred Rectal (Males) Exam: Deferred Neuro Exam (Abbreviated): Alert, Oriented, CN II-XII Intact, Normal Cognition, Normal Gait, No Motor/Sensory Deficits Back Exam: Normal Inspection, Full Range of Motion Extremities: Normal Inspection, Normal Range of Motion, Non-Tender, No Pedal Edema, Normal Capillary Refill, Other (except for healing abscesses in bilateral ac fossas. ) Psychiatric: Flat Affect Skin Exam: Warm, Dry, Intact #1 Interpretation EKG Date: 09/29/21 Time: 19:10 Rhythm: NSR [place]: Normal P-Wave: Present QRS: Normal ST-T: Normal QT: Normal Course - Vital Signs Last Recorded V/S: Last Vital Signs Temp 98.8 F 09/29/21 19:13 Pulse 106 H 09/29/21 19:45 Resp 18 09/29/21 19:45 BP 137/94 H 09/29/21 19:45 Pulse Ox 98 09/29/21 19:45 - Orders/Labs/Meds Orders: Active Orders 24 hr Category Date Time Status DRUG SCREEN URINE BIORAD [URCHEM] Stat Lab 09/29/21 19:09 Ordered UA RFX MUSA AND CULT IF INDIC [URIN] Stat Lab 09/29/21 19:09 Ordered Labs: Laboratory Tests 09/29/21 09/29/21 09/29/21 Range/Units 19:23 19:23 19:23 WBC 4.2 L (5.0-10.0) 10^3/uL RBC 4.60 (4.6-6.2) 10^6/uL Hgb 14.0 (14.0-18.0) g/dL Hct 39.9 L (40.0-54.0) % MCV 86.7 (80-100) fL MCH 30.4 (27.0-34.0) pg MCHC 35.1 H (33.0-35.0) g/dL Plt Count 399 D (150-450) 10^3/uL Neut % (Auto) 29.9 L (42.2-75.2) % Lymph % (Auto) 53.5 H (20.5-50.1) % [place] % (Auto) 13.3 H (2-8) % Eos % (Auto) 3.1 H (1.0-3.0) % Baso % (Auto) 0.2 (0.0-1.0) % Sodium 138 (136-145) mmol/L Potassium 3.2 L (3.5-5.1) mmol/L Chloride 99 (98-107) mmol/L Carbon Dioxide 29 (21-32) mmol/L Anion Gap 13.2 H (7-13) mEq/L BUN 11 (7-18) mg/dL Creatinine 1.42 H (0.70-1.30) mg/dL Est Cr Clr Drug Dosing 73.99 mL/min Estimated GFR (MDRD) 57 BUN/Creatinine Ratio 7.7 (No establ ref range) Glucose 81 (70-99) mg/dL Lactic Acid 0.8 (0.4-2.0) mmol/L Calcium 8.7 (8.5-10.1) mg/dL Magnesium 2.2 (1.8-2.4) mg/dL Total Bilirubin 0.3 (0.2-1.0) mg/dL AST 15 (15-37) U/L ALT 19 (16-63) U/L Alkaline Phosphatase 132 H (46-116) U/L Total Protein 8.1 (6.4-8.2) g/dL Albumin 3.8 (3.4-5.0) g/dL Globulin 4.3 Albumin/Globulin Ratio 0.9 Ethyl Alcohol < 3 (0) mg/dL Meds: Medications Discontinued Medications Generic Name Dose Route Start Last Admin Trade Name Freq PRN Reason Stop Dose Admin Sodium Chloride 1,000 mls @ 999 mls/hr 09/29/21 19:26 09/29/21 19:30 Normal Saline IV 09/29/21 20:26 999 mls/hr .BOLUS ONE Administration - Re-Assessments/Exams Free Text/Narrative Re-Assessment/Exam: 09/29/21 20:54 Pt signed out AMA, at the time of departure pt was aox4 no visible distress. I advised him that his workup was not complete and suggested he remain in the ER until a cause of his symptoms could be determined. The pt stated he only wanted to get Dilaudid and is leaving because we have not given him any. Departure - Departure Time of Disposition: 20:57 Disposition: Against Medical Advice 07 Clinical Impression: Left against medical advice - Discharge Information Forms: ED Department Discharge Sepsis Event Note (ED) - Focused Exam Vital Signs: Vital Signs Temp Pulse Resp BP Pulse Ox 09/29/21 19:45 106 H 18 137/94 H 98 09/29/21 19:13 98.8 F 108 H 14 149/110 H 97 - My Orders Last 24 Hours: My Active Orders 09/29/21 19:09 DRUG SCREEN URINE BIORAD [URCHEM] Stat UA RFX MUSA AND CULT IF INDIC [URIN] Stat - Assessment/Plan Last 24 Hours: My Active Orders 09/29/21 19:09 DRUG SCREEN URINE BIORAD [URCHEM] Stat UA RFX MUSA AND CULT IF INDIC [URIN] Stat
[2021-09-29] MEDS ORDERED: Sodium Chloride 0.9% 1,000 ML IV ONE (19:26)
[2021-09-29 19:46] LABS: ANION GAP 13.2 mEq/L (7-13); CHLORIDE,CL 99 mmol/L (98-107); SODIUM,NA 138 mmol/L (136-145)
== END 2021-09-29 20:51 | disposition left against medical advice (07) ==
LOC: DL.ED 19:04
DX: R56.9 Unspecified convulsions (principal); Z53.8 Procedure and treatment not carried out for other reasons
CPT/HCPCS: 36415; 80053; 80307; 83605; 83735; 85025; 93005; 99285; J7030

== ENCOUNTER 2021-11-25 19:12 | Emergency (ER) | payer MEDICAID ==
[2021-11-25] MEDS ORDERED: Sodium Chloride 0.9% 1,000 ML IV ONE ×2 (19:41→21:04)
[2021-11-25 20:24] LABS: ANION GAP 15.9 mEq/L (7-13); CHLORIDE,CL 102 mmol/L (98-107); SODIUM,NA 137 mmol/L (136-145)
[2021-11-25 20:29] LABS: CORONAVIRUS COVID-19 NAA NEGATIVE (NEGATIVE)
--- NOTE | 2021-11-25 21:49 | EDM.PDOC ---
ED HPI GENERAL MEDICAL PROBLEM - General Chief Complaint: Respiratory Problem Stated Complaint: AMBULANCE Time Seen by Provider: 11/25/21 19:30 Source of Information: Reports: Patient History Limitations: Reports: No Limitations - History of Present Illness INITIAL COMMENTS - FREE TEXT/NARRATIVE: 31 y/o M brought in by EMS for vomitnig, R upper abd pain that began 3 days ago. H reports fever, chills, heartburn. No blood in vomit. Did meth yesterday, has been taking pepto with no relief. Denies ayon, cp, db, pelvic pain, ext pain, alcohol. No daily meds, allergies. - Related Data Allergies Allergy/AdvReac Type Severity Reaction Status Date / Time No Known Allergies Allergy Verified 11/25/21 19:20 Home Meds: Home Meds Acetaminophen [Tylenol] 2 cap PO Q6H PRN 11/25/21 [History] Bismuth Subsalicylate [Pepto Bismol] 1 bottle PO 11/25/21 [History] Past Medical History - Past Health History Medical/Surgical History: Denies Medical/Surgical History Neurological History: Reports: Seizure Psychiatric History: Reports: Anxiety, Depression Hematologic History: Reports: None - Infectious Disease History Infectious Disease History: Reports: None - History Comment History Comment: as per H/P Social & Family History - Family History Family Medical History: Unobtainable - Tobacco Use Tobacco Use Status *Q: Current Every Day Tobacco User Years of Tobacco use: 7 Packs/Tins Daily: 1 - Caffeine Use Caffeine Use: Reports: Coffee - Recreational Drug Use Recreational Drug Use: Yes Recreational 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 ED EXAM, GENERAL - Physical Exam Exam: See Below Exam Limited By: No Limitations General Appearance: Alert Eye Exam: Bilateral Eye: PERRL Nose: Normal Inspection, Normal Mucosa, No Blood Throat/Mouth: Normal Inspection, Normal Lips, Normal Teeth, Normal Gums, Normal Oropharynx, Normal Voice, No Airway Compromise Head: Atraumatic, Normocephalic Neck: Normal Inspection, Supple, Non-Tender, Full Range of Motion Respiratory/Chest: No Respiratory Distress Cardiovascular: Normal Peripheral Pulses Peripheral Pulses: 2+: Brachial (R), Radial (L) GI/Abdominal: Tender (R upper quad) (Male) Exam: Deferred Rectal (Males) Exam: Deferred Back Exam: Normal Inspection, Full Range of Motion, NT Extremities: Normal Inspection, Normal Range of Motion, Non-Tender, Normal Capillary Refill, No Pedal Edema Neurological: Alert, Oriented, CN II-XII Intact, Normal Cognition, Normal Gait, Normal Reflexes, No Motor/Sensory Deficits Psychiatric: Normal Affect, Normal Mood Skin Exam: Warm, Dry, Intact Course - Vital Signs Last Recorded V/S: Last Vital Signs Temp 98.1 F 11/25/21 21:48 Pulse 140 H 11/25/21 21:48 Resp 26 H 11/25/21 21:48 BP 111/77 11/25/21 21:48 Pulse Ox 97 11/25/21 21:48 - Orders/Labs/Meds Orders: Active Orders 24 hr Category Date Time Status DRUG SCREEN URINE BIORAD [URCHEM] Stat Lab 11/25/21 19:41 Ordered UA RFX MUSA AND CULT IF INDIC [URIN] Stat Lab 11/25/21 19:40 Ordered Labs: Laboratory Tests 11/25/21 11/25/21 11/25/21 Range/Units 19:53 19:53 19:53 WBC 6.8 (5.0-10.0) 10^3/uL RBC 3.77 L (4.6-6.2) 10^6/uL Hgb 11.3 L D (14.0-18.0) g/dL Hct 33.3 L (40.0-54.0) % MCV 88.3 (80-100) fL MCH 30.0 (27.0-34.0) pg MCHC 33.9 (33.0-35.0) g/dL Plt Count 142 L D (150-450) 10^3/uL Neut % (Auto) 38.3 L (42.2-75.2) % Lymph % (Auto) 52.2 H (20.5-50.1) % [place] % (Auto) 9.3 H (2-8) % Eos % (Auto) 0.1 L (1.0-3.0) % Baso % (Auto) 0.1 (0.0-1.0) % Sodium 137 (136-145) mmol/L Potassium 4.9 D (3.5-5.1) mmol/L Chloride 102 (98-107) mmol/L Carbon Dioxide 24 (21-32) mmol/L Anion Gap 15.9 H (7-13) mEq/L BUN 41 H D (7-18) mg/dL Creatinine 1.36 H (0.70-1.30) mg/dL Est Cr Clr Drug Dosing TNP Estimated GFR (MDRD) > 60 BUN/Creatinine Ratio 30.1 (No establ ref range) Glucose 135 H (70-99) mg/dL Calcium 8.3 L (8.5-10.1) mg/dL Total Bilirubin 5.8 H (0.2-1.0) mg/dL AST 804 H (15-37) U/L ALT 2294 H (16-63) U/L Alkaline Phosphatase 353 H (46-116) U/L C-Reactive Protein 4.1 H (0.0-0.9) mg/dL Total Protein 5.8 L (6.4-8.2) g/dL Albumin 2.6 L (3.4-5.0) g/dL Globulin 3.2 Albumin/Globulin Ratio 0.81 TSH, Ultra Sensitive 0.60 (0.36-3.74) uIU/mL Acetaminophen 0 L (10-30 (Therapeutic)) ug/mL Ethyl Alcohol < 3 (0) mg/dL Influenza Type A RNA (NEGATIVE) Influenza Type B RNA (NEGATIVE) SARS-CoV-2 RNA (VANDANA) (NEGATIVE) 11/25/21 Range/Units 20:00 WBC (5.0-10.0) 10^3/uL RBC (4.6-6.2) 10^6/uL Hgb (14.0-18.0) g/dL Hct (40.0-54.0) % MCV (80-100) fL MCH (27.0-34.0) pg MCHC (33.0-35.0) g/dL Plt Count (150-450) 10^3/uL Neut % (Auto) (42.2-75.2) % Lymph % (Auto) (20.5-50.1) % [place] % (Auto) (2-8) % Eos % (Auto) (1.0-3.0) % Baso % (Auto) (0.0-1.0) % Sodium (136-145) mmol/L Potassium (3.5-5.1) mmol/L Chloride (98-107) mmol/L Carbon Dioxide (21-32) mmol/L Anion Gap (7-13) mEq/L BUN (7-18) mg/dL Creatinine (0.70-1.30) mg/dL Est Cr Clr Drug Dosing Estimated GFR (MDRD) BUN/Creatinine Ratio (No establ ref range) Glucose (70-99) mg/dL Calcium (8.5-10.1) mg/dL Total Bilirubin (0.2-1.0) mg/dL AST (15-37) U/L ALT (16-63) U/L Alkaline Phosphatase (46-116) U/L C-Reactive Protein (0.0-0.9) mg/dL Total Protein (6.4-8.2) g/dL Albumin (3.4-5.0) g/dL Globulin Albumin/Globulin Ratio TSH, Ultra Sensitive (0.36-3.74) uIU/mL Acetaminophen (10-30 (Therapeutic)) ug/mL Ethyl Alcohol (0) mg/dL Influenza Type A RNA Negative (NEGATIVE) Influenza Type B RNA Negative (NEGATIVE) SARS-CoV-2 RNA (VANDANA) Negative (NEGATIVE) Meds: Medications Discontinued Medications Generic Name Dose Route Start Last Admin Trade Name Freq PRN Reason Stop Dose Admin Sodium Chloride 1,000 mls @ 999 mls/hr 11/25/21 19:41 11/25/21 20:07 Normal Saline IV 11/25/21 20:41 999 mls/hr .BOLUS ONE Administration Sodium Chloride 1,000 mls @ 999 mls/hr 11/25/21 21:04 11/25/21 21:49 Normal Saline IV 11/25/21 22:04 999 mls/hr .BOLUS ONE Administration Iopamidol 100 ml 11/25/21 21:52 11/25/21 22:03 Iopamidol 612 Mg/Ml 100 Ml Bottle IVPUSH 11/25/21 21:53 100 ml ONETIME ONE Administration - Re-Assessments/Exams Free Text/Narrative Re-Assessment/Exam: 11/25/21 23:19 I discussed the pts labs exam and imaging with Dr. Gail wilder [facility] hospitalist who accepted the pt for transfer and further care. Surgery was consulted but stated that since there is no visible stone or dilation of the common bile duct on imagining that the hospitalist service will admit the pt for treatment. Departure - Departure Time of Disposition: 23:21 Disposition: DC/Tfer to Acute Hospital 02 Condition: Serious Clinical Impression: Elevated bilirubin, Elevated LFTs, Acute cholecystitis - Discharge Information *PRESCRIPTION DRUG MONITORING PROGRAM REVIEWED*: Not Applicable *COPY OF PRESCRIPTION DRUG MONITORING REPORT IN PATIENT JENIFER: Not Applicable Forms: ED Department Discharge, Interfacility Transfer EMTALA Sepsis Event Note (ED) - Focused Exam Vital Signs: Vital Signs Temp Pulse Resp BP Pulse Ox 11/25/21 21:48 98.1 F 140 H 26 H 111/77 97 11/25/21 19:19 98.4 F 144 H 24 H 121/76 99 - My Orders Last 24 Hours: My Active Orders 11/25/21 19:40 UA RFX MUSA AND CULT IF INDIC [URIN] Stat 11/25/21 19:41 DRUG SCREEN URINE BIORAD [URCHEM] Stat - Assessment/Plan Last 24 Hours: My Active Orders 11/25/21 19:40 UA RFX MUSA AND CULT IF INDIC [URIN] Stat 11/25/21 19:41 DRUG SCREEN URINE BIORAD [URCHEM] Stat
[2021-11-25] MEDS ORDERED: Iopamidol 612 MG/ML 100 ML Bottle IVPUSH ONE (21:52)
--- NOTE | 2021-11-25 22:24 | US ---
PROCEDURE INFORMATION: Exam: US Abdomen, Limited; Right Upper Quadrant Exam date and time: 11/25/2021 9:11 PM Age: 31 years old Clinical indication: Vomiting; Abdominal pain; Epigastric; Additional info: Vomiting, abd pn TECHNIQUE: Imaging protocol: US abdomen. Real time ultrasound with image documentation. Limited exam focused on the right upper quadrant. COMPARISON: No relevant prior studies available. FINDINGS: Liver: Normal. No masses. Gallbladder: Debris seen in the gallbladder. Gallbladder wall is thickened up to the 4 mm. Positive sonographic Madrid sign reported. Trace the pericholecystic fluid seen. Common bile duct: Normal. No stones. No dilation. Pancreas: Visualized pancreas is unremarkable. Right kidney: Normal. No mass. No hydronephrosis. IMPRESSION: Findings concerning for acute cholecystitis. Please correlate clinically.
--- NOTE | 2021-11-25 22:47 | CT ---
PROCEDURE INFORMATION: Exam: CT Abdomen And Pelvis With Contrast Exam date and time: 11/25/2021 9:52 PM Age: 31 years old Clinical indication: Other: Alt 2300, ast 800, bilirubin 5.8; Additional info: R abd pain TECHNIQUE: Imaging protocol: Computed tomography of the abdomen and pelvis with contrast. Radiation optimization: All CT scans at this facility use at least one of these dose optimization techniques: automated exposure control; mA and/or kV adjustment per patient size (includes targeted exams where dose is matched to clinical indication); or iterative reconstruction. Contrast material: [id number]; Contrast volume: 75 ml; Contrast route: INTRAVENOUS (IV); COMPARISON: US Abdomen Ltd 11/25/2021 9:11 PM FINDINGS: Liver: Normal. No mass. Gallbladder and bile ducts: Significant gallbladder wall thickening and pericholecystic fluid. This is better seen on comparison ultrasound. Pancreas: Normal. No ductal dilation. Spleen: Normal. No splenomegaly. Adrenal glands: Normal. No mass. Kidneys and ureters: Normal. No hydronephrosis. Stomach and bowel: Unremarkable. No obstruction. No mucosal thickening. Appendix: No evidence of appendicitis. Intraperitoneal space: Unremarkable. No free air. No significant fluid collection. Vasculature: Unremarkable. No abdominal aortic aneurysm. Lymph nodes: Mildly prominent retroperitoneal lymph nodes. Urinary bladder: Unremarkable as visualized. Reproductive: Unremarkable as visualized. Bones/joints: Unremarkable. No acute fracture. Soft tissues: Unremarkable. IMPRESSION: Significant gallbladder wall thickening and pericholecystic fluid. This is better seen on comparison ultrasound.
[2021-11-25 23:56] LABS: AMPHETAMINES,URINE POSITIVE (NEGATIVE); BARBITURATES,URINE NEGATIVE (NEGATIVE); BENZODIAZEPINE,URINE NEGATIVE (NEGATIVE); MDMA (ECSTASY), URINE NEGATIVE (NEGATIVE); METHADONE,URINE NEGATIVE (NEGATIVE); METHAMPHETAMINES,URINE POSITIVE (NEGATIVE); OPIATES,URINE NEGATIVE (NEGATIVE); OXYCODONE,URINE NEGATIVE (NEGATIVE); PHENCYCLIDINE,URINE NEGATIVE (NEGATIVE); TCA,URINE NEGATIVE (NEGATIVE)
== END 2021-11-26 00:22 ==
LOC: DL.ED 19:12
DX: K81.0 Acute cholecystitis (principal); E80.7 Disorder of bilirubin metabolism, unspecified; R79.89 Other specified abnormal findings of blood chemistry; Z72.0 Tobacco use; Z20.822 Contact with and (suspected) exposure to COVID-19
CPT/HCPCS: 0240U; 36415; 74177; 76705; 80053; 80143; 80305; 80307; 81003; 84443; 85025; 86140; 99285; J7030; Q9967

== ENCOUNTER 2021-12-19 14:05 | Emergency (ER) | payer MEDICAID ==
[2021-12-19] MEDS ORDERED: levETIRAcetam in NaCl (iso-os) 1,000 MG in Premix Bag 1 BAG IV ONE ×2 (14:27)
[2021-12-19] MEDS ORDERED: MVI, Adult with Vitamin K 10 ML, Thiamine 100 MG, Folic Acid 1 MG in Lactated Ringers 1... IV ONE ×4 (14:27)
[2021-12-19 15:07] LABS: ANION GAP 17.2 mEq/L (7-13); CHLORIDE,CL 103 mmol/L (98-107); SODIUM,NA 140 mmol/L (136-145)
[2021-12-19 15:42] LABS: AMPHETAMINES,URINE NEGATIVE (NEGATIVE); BARBITURATES,URINE NEGATIVE (NEGATIVE); BENZODIAZEPINE,URINE NEGATIVE (NEGATIVE); MDMA (ECSTASY), URINE NEGATIVE (NEGATIVE); METHADONE,URINE NEGATIVE (NEGATIVE); METHAMPHETAMINES,URINE NEGATIVE (NEGATIVE); OPIATES,URINE NEGATIVE (NEGATIVE); OXYCODONE,URINE NEGATIVE (NEGATIVE); PHENCYCLIDINE,URINE NEGATIVE (NEGATIVE); TCA,URINE NEGATIVE (NEGATIVE)
== END 2021-12-19 16:03 | disposition home or self-care (01) ==
LOC: DL.ED 14:05
DX: R56.9 Unspecified convulsions (principal); D50.9 Iron deficiency anemia, unspecified; F10.20 Alcohol dependence, uncomplicated; Y90.0 Blood alcohol level of less than 20 mg/100 ml; Z72.0 Tobacco use
CPT/HCPCS: 36415; 80053; 80305; 80307; 81003; 83605; 83735; 85025; 86140; 96365; 96375; 99285; J1953; J3411; J7120; J3490

== ENCOUNTER 2022-02-07 11:37 | Emergency (ER) | payer MEDICAID ==
[2022-02-07] MEDS: levETIRAcetam in NaCl (iso-os) 1,000 MG in Premix Bag 1 BAG IV ONE ×2 (12:35)
[2022-02-07 12:50] LABS: ANION GAP 13.9 mEq/L (7-13); CHLORIDE,CL 104 mmol/L (98-107); ESTIMATED GFR > 60; SODIUM,NA 139 mmol/L (136-145)
[2022-02-07 12:51] LABS: ACETAMINOPHEN 0 ug/mL (10-30 (Therapeutic))
[2022-02-07] MEDS: MVI, Adult with Vitamin K 10 ML, Folic Acid 1 MG, Thiamine 100 MG in Lactated Ringers 1... IV ONE ×4 (12:57)
== END 2022-02-07 14:21 | disposition home or self-care (01) ==
LOC: DL.ED 11:37
DX: R56.9 Unspecified convulsions (principal); F10.10 Alcohol abuse, uncomplicated; Z72.0 Tobacco use; Y90.5 Blood alcohol level of 100-119 mg/100 ml
CPT/HCPCS: 36415; 70450; 80053; 80143; 80179; 80307; 83605; 84484; 85025; 93005; 93010; 96365; 96367; 99283; 99284; J1953; J3411; J7120; J3490

== ENCOUNTER 2022-02-18 06:32 | Emergency (ER) | payer MEDICAID ==
[2022-02-18] MEDS ORDERED: levETIRAcetam in NaCl (iso-os) 1,000 MG in Premix Bag 1 BAG IV ONE ×2 (06:42)
[2022-02-18 07:26] LABS: ANION GAP 13.6 mEq/L (7-13); CHLORIDE,CL 110 mmol/L (98-107); SODIUM,NA 149 mmol/L (136-145)
[2022-02-18 07:31] LABS: ACETAMINOPHEN 0 ug/mL (10-30 (Therapeutic))
[2022-02-18 07:41] LABS: AMPHETAMINES,URINE POSITIVE (NEGATIVE); BARBITURATES,URINE NEGATIVE (NEGATIVE); BENZODIAZEPINE,URINE NEGATIVE (NEGATIVE); MDMA (ECSTASY), URINE POSITIVE (NEGATIVE); METHADONE,URINE NEGATIVE (NEGATIVE); METHAMPHETAMINES,URINE POSITIVE (NEGATIVE); OPIATES,URINE NEGATIVE (NEGATIVE); OXYCODONE,URINE NEGATIVE (NEGATIVE); PHENCYCLIDINE,URINE NEGATIVE (NEGATIVE); TCA,URINE NEGATIVE (NEGATIVE)
== END 2022-02-18 08:22 | disposition home or self-care (01) ==
LOC: DL.ED 06:32
DX: F10.10 Alcohol abuse, uncomplicated (principal); Z72.0 Tobacco use; Y90.6 Blood alcohol level of 120-199 mg/100 ml
CPT/HCPCS: 36415; 80053; 80143; 80177; 80305; 80307; 81001; 83605; 83735; 84484; 85025; 93005; 96374; 99285; J1953; 93010

== ENCOUNTER 2022-03-03 14:41 | Emergency (ER) | payer MEDICAID ==
[2022-03-03] MEDS ORDERED: Sodium Chloride 0.9% 10 ML Syringe FLUSH PRN (15:17)
[2022-03-03] MEDS ORDERED: Sodium Chloride 0.9% 1,000 ML IV ONE (15:17)
[2022-03-03 15:49] LABS: ANION GAP 12.7 mEq/L (7-13); CHLORIDE,CL 101 mmol/L (98-107); SODIUM,NA 139 mmol/L (136-145)
[2022-03-03 16:07] LABS: AMPHETAMINES,URINE NEGATIVE (NEGATIVE); BARBITURATES,URINE NEGATIVE (NEGATIVE); BENZODIAZEPINE,URINE NEGATIVE (NEGATIVE); MDMA (ECSTASY), URINE NEGATIVE (NEGATIVE); METHADONE,URINE NEGATIVE (NEGATIVE); METHAMPHETAMINES,URINE NEGATIVE (NEGATIVE); OPIATES,URINE NEGATIVE (NEGATIVE); OXYCODONE,URINE NEGATIVE (NEGATIVE); PHENCYCLIDINE,URINE NEGATIVE (NEGATIVE); TCA,URINE NEGATIVE (NEGATIVE)
== END 2022-03-03 16:40 | disposition home or self-care (01) ==
LOC: DL.ED 14:41
DX: F41.0 Panic disorder [episodic paroxysmal anxiety] (principal); K21.9 Gastro-esophageal reflux disease without esophagitis
CPT/HCPCS: 36415; 80053; 80305; 80307; 81003; 83735; 84484; 85025; 86140; 93005; 99284; J7030

== ENCOUNTER 2023-11-09 03:50 | Emergency (ER) | payer MEDICAID ==
[2023-11-09] MEDS ORDERED: fentaNYL 100 MCG/2 ML SDV IM ONE (05:00)
[2023-11-09] MEDS ORDERED: fentaNYL 100 MCG/2 ML SDV ONE (05:03)
[2023-11-09] MEDS ORDERED: Naloxone 2 MG/2 ML Syringe IVPUSH PRN (05:15)
== END 2023-11-09 05:22 | disposition left against medical advice (07) ==
LOC: DL.ED 03:50
DX: S43.015A Anterior dislocation of left humerus, initial encounter (principal); F10.920 Alcohol use, unspecified with intoxication, uncomplicated; I10 Essential (primary) hypertension; F17.290 Nicotine dependence, other tobacco product, uncomplicated; Z79.899 Other long term (current) drug therapy; W10.8XXA Fall (on) (from) other stairs and steps, initial encounter
CPT/HCPCS: 23650; 73030; 73060; 73080; 99283; J3010

== ENCOUNTER 2024-09-23 11:44 | Emergency (ER) | payer BC, MEDICAID, OTHER | END 2024-09-23 12:07 | disposition home or self-care (01) | LOC: DL.ED 11:44 | DX: S91.101A Unspecified open wound of right great toe without damage to nail, initial encounter (principal); I10 Essential (primary) hypertension | CPT/HCPCS: 99282; 99283 ==

== ENCOUNTER 2024-09-24 05:42 | Emergency (ER) | payer BC, MEDICAID ==
[2024-09-24] MEDS ORDERED: Sodium Chloride 0.9% 10 ML Syringe FLUSH PRN (05:52)
[2024-09-24] MEDS: chlordiazePOXIDE 25 MG Cap PO ONE (06:17)
[2024-09-24 06:18] LABS: BASOPHILS PERCENT AUTO 0.3 % (0.0-1.0); EOSINOPHILS PERCENT AUTO 2.8 % (1.0-3.0); HEMATOCRIT 39.6 % (40.0-54.0); HEMOGLOBIN 13.2 g/dL (14.0-18.0); LYMPHOCYTES PERCENT AUTO 42.8 % (20.5-50.1); MEAN CORPUSCULAR HEMOGLOBIN 33.6 pg (27.0-34.0); MEAN CORPUSCULAR HGB CONC 33.3 g/dL (33.0-35.0); MEAN CORPUSCULAR VOLUME 100.8 fL (80-100); NEUTROPHILS PERCENT AUTO 45.1 % (42.2-75.2); PLATELET COUNT,PLT 153 10^3/uL (150-450); RED BLOOD CELL COUNT 3.93 10^6/uL (4.6-6.2); WHITE BLOOD CELL COUNT,WBC 3.6 10^3/uL (5.0-10.0)
[2024-09-24] MEDS: MVI, Adult with Vitamin K 10 ML, Folic Acid 1 MG, Thiamine 100 MG in Lactated Ringers 1... IV ONE (06:22)
[2024-09-24] MEDS ORDERED: Flumazenil 0.1 MG/ML 5 ML MDV IVPUSH PRN (06:22)
[2024-09-24] MEDS: LORazepam 2 MG/ML SDV IVPUSH ONE (06:31)
[2024-09-24 06:48] LABS: A/G RATIO 0.9; ALANINE AMINOTRANSFERASE,ALT 221 U/L (16-63); ALBUMIN 3.7 g/dL (3.4-5.0); ALKALINE PHOSPHATASE 148 U/L (46-116); ANION GAP 12.9 mEq/L (7-13); ASPARTATE AMNIOTRANSFERASE,AST 247 U/L (15-37); BILIRUBIN TOTAL 0.4 mg/dL (0.2-1.0); BLOOD UREA NITROGEN,BUN 7 mg/dL (7-18); BUN/CREATININE RATIO 7.4 (No establ ref range); CALCIUM 8.9 mg/dL (8.5-10.1); CARBON DIOXIDE,CO2 29 mmol/L (21-32); CHLORIDE,CL 105 mmol/L (98-107); CREATINE KINASE,CK 235 U/L (39-308); CREATININE 0.94 mg/dL (0.70-1.30); EST CRCL DRUG DOSING (CG) 108.64 mL/min; ETHANOL BLOOD MEDICAL 152 mg/dL (0); GLUCOSE RANDOM 171 mg/dL (70-99); MAGNESIUM 1.7 mg/dL (1.8-2.4); POTASSIUM,K 3.9 mmol/L (3.5-5.1); PROTEIN TOTAL,TP 7.9 g/dL (6.4-8.2); SODIUM,NA 143 mmol/L (136-145)
[2024-09-24 06:51] LABS: ESTIMATED GFR 108 mL/min (>=60)
[2024-09-24] MEDS: Sodium Chloride 0.9% 1,000 ML IV ONE (07:32)
== END 2024-09-24 07:25 | disposition home or self-care (01) ==
LOC: DL.ED 05:42
DX: D70.9 Neutropenia, unspecified (principal); F10.920 Alcohol use, unspecified with intoxication, uncomplicated; I10 Essential (primary) hypertension; Z79.899 Other long term (current) drug therapy
CPT/HCPCS: 36415; 70450; 72125; 80053; 80307; 82550; 83735; 84484; 85025; 93005; 96365; 96375; 99284; A9270; J2060; J3411; J7120; J3490

== ENCOUNTER 2024-09-25 18:29 | Emergency (ER) | payer MEDICAID, BC ==
[2024-09-25] MEDS: Lidocaine 1% 5 ML VIAL INJECT ONE (19:56)
[2024-09-25] MEDS: Bupivacaine 0.5% 30 ML SDV INFILT ONE (19:56)
== END 2024-09-25 21:30 | disposition home or self-care (01) ==
LOC: DL.ED 18:29
DX: S61.411A Laceration without foreign body of right hand, initial encounter (principal); I10 Essential (primary) hypertension; Z79.899 Other long term (current) drug therapy; W25.XXXA Contact with sharp glass, initial encounter
CPT/HCPCS: 12002; 73130; 99283; J0665; J3490

== ENCOUNTER 2024-10-08 18:16 | Emergency (ER) | payer MEDICAID | END 2024-10-08 20:57 | disposition left against medical advice (07) | LOC: DL.ED 18:16 | DX: Z53.21 Procedure and treatment not carried out due to patient leaving prior to being seen by health care provider (principal) ==

== ENCOUNTER 2024-10-11 00:15 | Emergency (ER) | payer MEDICAID ==
[2024-10-11 00:41] LABS: BASOPHILS PERCENT AUTO 0.4 % (0.0-1.0); HEMOGLOBIN 13.4 g/dL (14.0-18.0); LYMPHOCYTES PERCENT AUTO 25.6 % (20.5-50.1); MEAN CORPUSCULAR HEMOGLOBIN 33.7 pg (27.0-34.0); MEAN CORPUSCULAR HGB CONC 34.4 g/dL (33.0-35.0); MONOCYTES PERCENT AUTO 12.8 % (2-8); NEUTROPHILS PERCENT AUTO 61.2 % (42.2-75.2); PLATELET COUNT,PLT 95 10^3/uL (150-450); RED BLOOD CELL COUNT 3.98 10^6/uL (4.6-6.2); WHITE BLOOD CELL COUNT,WBC 2.3 10^3/uL (5.0-10.0)
[2024-10-11] MEDS: MVI, Adult with Vitamin K 10 ML, Folic Acid 1 MG, Thiamine 100 MG in Lactated Ringers 1... IV ONE (00:44)
[2024-10-11 00:58] LABS: PROTHROMBIN TIME 9.9 SEC (9.0-12.0)
[2024-10-11] MEDS: Famotidine 20 MG/2 ML SDV IVPUSH ONE (01:01)
[2024-10-11 01:04] LABS: A/G RATIO 1.1; ALBUMIN 4.1 g/dL (3.4-5.0); ANION GAP 18.4 mEq/L (7-13); BILIRUBIN TOTAL 0.6 mg/dL (0.2-1.0); BUN/CREATININE RATIO 6.9 (No establ ref range); CALCIUM 9.3 mg/dL (8.5-10.1); CREATININE 0.87 mg/dL (0.70-1.30); EST CRCL DRUG DOSING (CG) 117.38 mL/min; MAGNESIUM 1.9 mg/dL (1.8-2.4); POTASSIUM,K 3.4 mmol/L (3.5-5.1); PROTEIN TOTAL,TP 7.9 g/dL (6.4-8.2)
[2024-10-11] MEDS: Sodium Chloride 0.9% 1,000 ML IV ONE (01:45)
[2024-10-11 01:54] LABS: APPEARANCE,URINE CLEAR (CLEAR); BILIRUBIN,URINE NEGATIVE (NEGATIVE); COLOR,URINE YELLOW (YELLOW); GLUCOSE,URINE NEGATIVE (NEGATIVE); KETONES,URINE NEGATIVE (NEGATIVE); LEUKOCYTE ESTERASE,URINE NEGATIVE (NEGATIVE); NITRITE,URINE NEGATIVE (NEGATIVE); OCCULT BLOOD,URINE NEGATIVE (NEGATIVE); PROTEIN,URINE 100 (NEGATIVE); UROBILINOGEN,URINE 0.2 mg/dL (0.2-1.0)
[2024-10-11 01:58] LABS: AMPHETAMINES,URINE NEGATIVE (NEGATIVE); BARBITURATES,URINE NEGATIVE (NEGATIVE); BENZODIAZEPINE,URINE POSITIVE (NEGATIVE); MDMA (ECSTASY), URINE NEGATIVE (NEGATIVE); METHADONE,URINE NEGATIVE (NEGATIVE); METHAMPHETAMINES,URINE NEGATIVE (NEGATIVE); OPIATES,URINE NEGATIVE (NEGATIVE); OXYCODONE,URINE NEGATIVE (NEGATIVE); PHENCYCLIDINE,URINE NEGATIVE (NEGATIVE); TCA,URINE NEGATIVE (NEGATIVE)
[2024-10-11 02:03] LABS: EPITHELIAL CELLS,URINE FEW /HPF (NOT SEEN); RBC,URINE 0-5 /HPF (0-5); WBC,URINE 0-5 /HPF (0-5/HPF)
[2024-10-11 02:04] LABS: AMORPHOUS SEDIMENT,URINE FEW /HPF (NOT SEEN); BACTERIA,URINE FEW /HPF (0-FEW/HPF); MUCUS,URINE MODERATE /LPF (NOT SEEN)
[2024-10-11] MEDS: Ondansetron 4 MG/2 ML SDV IVPUSH ONE (02:12)
[2024-10-11] MEDS: Potassium Chloride 10 MEQ Tab.ER PO ONE (02:12)
== END 2024-10-11 02:28 | disposition home or self-care (01) ==
LOC: DL.ED 00:15
DX: F10.120 Alcohol abuse with intoxication, uncomplicated (principal); E86.0 Dehydration; R74.01 Elevation of levels of liver transaminase levels; D61.818 Other pancytopenia; I10 Essential (primary) hypertension; Z87.891 Personal history of nicotine dependence; Y90.7 Blood alcohol level of 200-239 mg/100 ml; Z79.899 Other long term (current) drug therapy
CPT/HCPCS: 36415; 70450; 80053; 80305; 80307; 81001; 83690; 83735; 84484; 85025; 85610; 93005; 93010; 96365; 96375; 99284; A9270; J2405; J3411; J3490; J7030; J7120

== ENCOUNTER 2024-10-13 12:50 | Emergency (ER) | payer MEDICAID ==
[2024-10-13] MEDS: LORazepam 2 MG/ML SDV IVPUSH ONE (13:29)
[2024-10-13 13:38] LABS: BASOPHILS PERCENT AUTO 0.2 % (0.0-1.0); EOSINOPHILS PERCENT AUTO 0.2 % (1.0-3.0); HEMATOCRIT 39.1 % (40.0-54.0); HEMOGLOBIN 13.3 g/dL (14.0-18.0); LYMPHOCYTES PERCENT AUTO 11.4 % (20.5-50.1); MONOCYTES PERCENT AUTO 7.6 % (2-8); NEUTROPHILS PERCENT AUTO 80.6 % (42.2-75.2); PLATELET COUNT,PLT 86 10^3/uL (150-450); RED BLOOD CELL COUNT 3.91 10^6/uL (4.6-6.2); WHITE BLOOD CELL COUNT,WBC 4.2 10^3/uL (5.0-10.0)
[2024-10-13 13:49] LABS: A/G RATIO 1.1; ANION GAP 15.5 mEq/L (7-13); BILIRUBIN TOTAL 0.9 mg/dL (0.2-1.0); BUN/CREATININE RATIO 9.4 (No establ ref range); CALCIUM 8.5 mg/dL (8.5-10.1); CREATININE 0.85 mg/dL (0.70-1.30); EST CRCL DRUG DOSING (CG) 120.14 mL/min; MAGNESIUM 1.5 mg/dL (1.8-2.4); POTASSIUM,K 3.5 mmol/L (3.5-5.1); PROTEIN TOTAL,TP 7.6 g/dL (6.4-8.2)
== END 2024-10-13 14:35 | disposition home or self-care (01) ==
LOC: DL.ED 12:50
DX: G40.909 Epilepsy, unspecified, not intractable, without status epilepticus (principal); R94.5 Abnormal results of liver function studies; I10 Essential (primary) hypertension; Z86.16 Personal history of COVID-19; Z79.899 Other long term (current) drug therapy
CPT/HCPCS: 36415; 80053; 80307; 83690; 83735; 84484; 85025; 96374; 99284; J2060

== ENCOUNTER 2025-01-29 15:15 | Emergency (ER) | payer MEDICAID ==
[2025-01-29 16:25] LABS: BASOPHILS PERCENT AUTO 0.1 % (0.0-1.0); HEMATOCRIT 42.8 % (40.0-54.0); HEMOGLOBIN 14.5 g/dL (14.0-18.0); LYMPHOCYTES PERCENT AUTO 22.3 % (20.5-50.1); MEAN CORPUSCULAR HGB CONC 33.9 g/dL (33.0-35.0); MEAN CORPUSCULAR VOLUME 94.5 fL (80-100); MONOCYTES PERCENT AUTO 4.3 % (2-8); NEUTROPHILS PERCENT AUTO 73.3 % (42.2-75.2); PLATELET COUNT,PLT 246 10^3/uL (150-450); RED BLOOD CELL COUNT 4.53 10^6/uL (4.6-6.2); WHITE BLOOD CELL COUNT,WBC 6.8 10^3/uL (5.0-10.0)
[2025-01-29] MEDS: Ondansetron 4 MG/2 ML SDV IVPUSH ONE (16:30)
[2025-01-29] MEDS: Sodium Chloride 0.9% 1,000 ML IV SCH (16:30)
[2025-01-29 16:39] LABS: ANION GAP 20.2 mEq/L (7-13); CALCIUM 9.6 mg/dL (8.5-10.1); CREATININE 1.31 mg/dL (0.70-1.30); EST CRCL DRUG DOSING (CG) 77.96 mL/min; MAGNESIUM 1.7 mg/dL (1.8-2.4); POTASSIUM,K 4.2 mmol/L (3.5-5.1)
== END 2025-01-29 17:44 | disposition home or self-care (01) ==
LOC: DL.ED 15:15
DX: E86.0 Dehydration (principal); R11.10 Vomiting, unspecified; R19.7 Diarrhea, unspecified; I10 Essential (primary) hypertension; Z79.899 Other long term (current) drug therapy
CPT/HCPCS: 36415; 80048; 83735; 85025; 96361; 96374; 99283; 99284; J2405; J7030

== ENCOUNTER 2025-09-23 16:17 | Emergency (ER) | payer MEDICAID ==
[2025-09-23] MEDS ORDERED: Sodium Chloride 0.9% 10 ML Syringe FLUSH PRN (16:24)
[2025-09-23 16:34] LABS: BASOPHILS PERCENT AUTO 0.6 % (0.0-1.0); EOSINOPHILS PERCENT AUTO 3.0 % (1.0-3.0); LYMPHOCYTES PERCENT AUTO 40.0 % (20.5-50.1); MONOCYTES PERCENT AUTO 6.8 % (2-8); NEUTROPHILS PERCENT AUTO 49.6 % (42.2-75.2); PLATELET COUNT,PLT 194 10^3/uL (150-450); RED BLOOD CELL COUNT 4.33 10^6/uL (4.6-6.2); WHITE BLOOD CELL COUNT,WBC 5.0 10^3/uL (5.0-10.0)
[2025-09-23 16:58] LABS: A/G RATIO 1.3; ALANINE AMINOTRANSFERASE,ALT 134 U/L (16-63); ASPARTATE AMNIOTRANSFERASE,AST 99 U/L (15-37); BILIRUBIN TOTAL 0.8 mg/dL (0.2-1.0); BLOOD UREA NITROGEN,BUN 15 mg/dL (7-18); CARBON DIOXIDE,CO2 28 mmol/L (21-32); CHLORIDE,CL 102 mmol/L (98-107); CREATININE 1.02 mg/dL (0.70-1.30); EST CRCL DRUG DOSING (CG) 102.38 mL/min; GLUCOSE RANDOM 111 mg/dL (70-99); POTASSIUM,K 3.8 mmol/L (3.5-5.1); PROTEIN TOTAL,TP 7.2 g/dL (6.4-8.2); SODIUM,NA 141 mmol/L (136-145)
[2025-09-23 17:00] LABS: ESTIMATED GFR 97 mL/min (>=60); ETHANOL BLOOD MEDICAL < 3 mg/dL (0)
[2025-09-23 17:06] LABS: LACTIC ACID 4.3 mmol/L (0.4-2.0)
[2025-09-23 22:38] LABS: AMPHETAMINES,URINE NEGATIVE (NEGATIVE); BARBITURATES,URINE NEGATIVE (NEGATIVE); MDMA (ECSTASY), URINE NEGATIVE (NEGATIVE); METHAMPHETAMINES,URINE NEGATIVE (NEGATIVE); OPIATES,URINE NEGATIVE (NEGATIVE); OXYCODONE,URINE NEGATIVE (NEGATIVE); PHENCYCLIDINE,URINE NEGATIVE (NEGATIVE); TCA,URINE NEGATIVE (NEGATIVE)
== END 2025-09-23 23:33 | disposition home or self-care (01) ==
LOC: DL.ED 16:17
DX: G40.909 Epilepsy, unspecified, not intractable, without status epilepticus (principal); F10.10 Alcohol abuse, uncomplicated; R79.89 Other specified abnormal findings of blood chemistry; I10 Essential (primary) hypertension; Z79.899 Other long term (current) drug therapy
CPT/HCPCS: 36415; 70450; 80053; 80305-QW; 80307; 83605; 83735; 85025; 87040; 96361; 96374; 99285-25; J1953; J7030

== ENCOUNTER 2025-10-10 05:22 | Emergency (ER) | payer MEDICAID ==
[2025-10-10 05:56] LABS: BASOPHILS PERCENT AUTO 0.1 % (0.0-1.0); EOSINOPHILS PERCENT AUTO 0.8 % (1.0-3.0); LYMPHOCYTES PERCENT AUTO 25.3 % (20.5-50.1); MONOCYTES PERCENT AUTO 4.7 % (2-8); NEUTROPHILS PERCENT AUTO 69.1 % (42.2-75.2); PLATELET COUNT,PLT 206 10^3/uL (150-450); RED BLOOD CELL COUNT 4.20 10^6/uL (4.6-6.2); WHITE BLOOD CELL COUNT,WBC 7.9 10^3/uL (5.0-10.0)
[2025-10-10 06:14] LABS: A/G RATIO 1.1; ALANINE AMINOTRANSFERASE,ALT 67.0 U/L (16-63); ASPARTATE AMNIOTRANSFERASE,AST 36.0 U/L (15-37); BILIRUBIN TOTAL 0.5 mg/dL (0.2-1.0); BLOOD UREA NITROGEN,BUN 13.0 mg/dL (7-18); CARBON DIOXIDE,CO2 30.0 mmol/L (21-32); CHLORIDE,CL 102.0 mmol/L (98-107); CREATININE 1.0 mg/dL (0.70-1.30); EST CRCL DRUG DOSING (CG) 101.14 mL/min; GLUCOSE RANDOM 124.0 mg/dL (70-99); POTASSIUM,K 3.9 mmol/L (3.5-5.1); PROTEIN TOTAL,TP 7.6 g/dL (6.4-8.2); SODIUM,NA 138.0 mmol/L (136-145)
[2025-10-10 06:15] LABS: ESTIMATED GFR 99.0 mL/min (>=60)
== END 2025-10-10 06:30 | disposition home or self-care (01) ==
LOC: DL.ED 05:22
DX: M79.622 Pain in left upper arm (principal); I10 Essential (primary) hypertension; Z79.899 Other long term (current) drug therapy
CPT/HCPCS: 36415; 73060; 80053; 82550; 85025; 85379; 85651; 99283; A9270; 99282